=== PATIENT | male | born 1965 | race Caucasian/White ===

== ENCOUNTER 2020-11-26 05:05 | Emergency (ER) | payer OTHER ==
[2020-11-26 05:42] LABS: Hematocrit 46.4 % (42-50); Hemoglobin 16.1 gm/dl (12.5-18.0); Mean Cell Volume 93.9 fl (78-100); Mean Corpuscular Hemoglobin 32.6 pg (26-32); Mean Corpuscular Hgb Concent. 34.7 g/dl (32-36); Mean Platelet Volume 9.6 fl (7.5-11.0); Platelet Count 308 K/mm3 (150-450); Red Blood Count 4.94 M/mm3 (4.1-5.6); Red Cell Distribution Width 12.6 % (11.5-14.0); White Blood Count 6.6 K/mm3 (4.0-10.5)
--- NOTE | 2020-11-26 05:48 | ERPHSYRPT ---
<LELE CAMARENA - Last Filed: 11/26/20 05:42> - History of Present Illness Historian: patient Exam Limitations: other (Poor historian) Patient Subjective Stated Complaint: pain in my left side of ribs espeically when moving Triage Nursing Assessment: pt c/o pain in his left side between ribs and is much worse on movement. Pt started having this pain last Wednesday at work at [employer] and was sent here for xray and bloodwork. Pt states, "the pain started up again Wednesday and has just gotten worse". Pt doesn't have much pain at rest but is in significant pain with any movement. Lungs clear, pt denies any chest pain. Pt was positive for covid Oct 22, 2020. Pt has dry, non-prod cough, fatigue, headache. Pt states, "I fell Wednesday in my barn over an extension cord on that left side". Physician History: 55 yo wm w L lateral thoracic pain x 2 days. Pt states that he fell in his barn 2 days ago after tripping over a cord. Pt told my nurses that he has had the pain x 1 wk. Pt had CV19 diagnosed on 10/22, but that cough/symptoms have resolved. Pain is 3/10 now and has been up to 9/10. It is sharp and worse when rolling over in bed. Pt has a residual cough from CV19 but denies fever/dyspnea at this time. Timing/Duration: other (2 days/1wk) Quality: sharpness Location: other (L lateral thorax) Chest Pain Radiation: no radiation Severity of Pain-Current: mild Modifying Factors: Improves With: coughing, other (Turning in bed) Associated Symptoms: cough, hurts to breathe, No nausea, No vomiting, No palpitations, No heartburn, No abdominal pain, No shortness of breath, No diaphoresis, No chills, No fever, No fatigue, No weakness, No swelling/lump in chest, No syncope, No rash, No headache, No dizziness, No edema, No back pain Prior Chest Pain/Cardiac Workup: no prior chest pain Nitro Today/Relief: no nitro taken today Aspirin Treatment Today: no aspirin today Allergies/Adverse Reactions: BEE STINGS Allergy (Severe, Uncoded 11/07/11 15:49) Swelling Home Medications: Azithromycin 250 mg [Zithromax 250 MG TABLET] 1 tab PO DAILY 11/26/20 [History] Ergocalciferol (Vitamin D2) [Vitamin D2] 50,000 units PO WEEKLY 11/26/20 [History] Glipizide [Glipizide ER] 5 mg PO DAILY 11/26/20 [History] Metoprolol Tartrate 25 mg [Lopressor 25MG Tab] 25 mg PO DAILY 11/26/20 [History] Tamsulosin HCl 0.4 mg [Flomax 0.4 MG] 1 tab PO DAILY 11/26/20 [History] Hx Tetanus, Diphtheria Vaccination/Date Given: No Hx Influenza Vaccination/Date Given: No Hx Pneumococcal Vaccination/Date Given: No Immunizations Up to Date: No Travel Risk - International Travel Have you traveled outside of the country in past 3 weeks: No - Coronavirus Screening Are you exhibiting any of the following symptoms?: Yes Symptoms: Cough: New Onset, Shortness of Breath, Headaches/Body Aches/Fatigue Close contact with a COVID-19 positive Pt in past 14-21 Days: No - Vaccine Status Have you recieved a Covid-19 vaccination: No - Review of Systems Constitutional: No Symptoms Eyes: No Symptoms Ears, Nose, & Throat: No Symptoms Respiratory: No Symptoms, Cough Cardiac: No Symptoms, Chest Pain Abdominal/Gastrointestinal: No Symptoms Genitourinary Symptoms: No Symptoms Musculoskeletal: No Symptoms Skin: No Symptoms Neurological: No Symptoms Psychological: No Symptoms Endocrine: No Symptoms Hematologic/Lymphatic: No Symptoms Immunological/Allergic: No Symptoms - Past Medical History Pertinent Past Medical History: Yes Neurological History: No Pertinent History ENT History: No Pertinent History Cardiac History: High Cholesterol, Hypertension Respiratory History: No Pertinent History Endocrine Medical History: Diabetes Type II Musculoskeletal History: Fractures GI Medical History: No Pertinent History History: No Pertinent History Psycho-Social History: No Pertinent History Male Reproductive Disorders: No Pertinent History Other Medical History: HEMACROMITOSIS - Past Surgical History Past Surgical History: Yes Neuro Surgical History: No Pertinent History Cardiac: No Pertinent History Respiratory: No Pertinent History Gastrointestinal: No Pertinent History Genitourinary: No Pertinent History Musculoskeletal: Joint Replacement, Orthopedic Surgery Male Surgical History: No Pertinent History - Social History Smoking Status: Former smoker Exposure to second hand smoke: No Drug Use: none Patient Lives Alone: No Significant Family History: no pertinent family hx - Nursing Vital Signs Nursing Vital Signs: Hypertensive - Physical Exam General Appearance: no apparent distress Eye Exam: PERRL/EOMI, eyes nml inspection Ears, Nose, Throat Exam: normal ENT inspection, TMs normal, pharynx normal, moist mucous membranes Neck Exam: normal inspection, non-tender, supple, full range of motion Respiratory Exam: normal breath sounds, chest tenderness (L lateral thorax), lungs clear, airway intact, No respiratory distress Cardiovascular Exam: regular rate/rhythm, normal heart sounds, normal peripheral pulses, No murmur Gastrointestinal/Abdomen Exam: soft, normal bowel sounds, No tenderness Back Exam: normal inspection, normal range of motion, No CVA tenderness, No vertebral tenderness Extremity Exam: normal inspection, normal range of motion Neurologic Exam: alert, oriented x 3, cooperative, employment services director II-XII nml as tested, normal mood/affect, nml cerebellar function, nml station & gait Skin Exam: normal color, warm, dry Lymphatic Exam: No adenopathy SpO2 Interpretation: normal SpO2: 98 O2 Delivery: Room Air - Course EKG Interpreted by Me: RATE (NSR R94/Prolonged QTc/No acute ST changes/IVCD) - Departure Clinical Impression: Bilateral pneumonia, Chest wall pain Condition: Stable Referrals: STACY FLOWER, INVENTORY PLANNER [Primary Care Provider] - Additional Instructions: Discharge/Care Plan SIRI SAMPSON was seen on 11/26/20 in the Emergency Room. The patient was counseled regarding Diagnosis,Lab results, Imaging studies, need for follow up and when to return to the Emergency Room. Prescriptions given: Discharge Note I have spoken with the patient and/or caregivers. I have explained the patient's condition, diagnosis and treatment plan based on the information available to me at this time. I have answered the patient's and/or caregiver's questions and a ddressed any concerns. The patient and/or caregivers have as good understanding of the patient's diagnosis, condition and treatment plan as can be expected at this point. The vital signs have been stable. The patient's condition is stable and appropriate for discharge from the emergency department. The patient will pursue further outpatient evaluation with the primary care physician or other designated or consulting physician as outlined in the discharge instructions. The patient and/or caregivers are agreeable to this plan of care and follow-up instructions have been explained in detail. The patient and/or caregivers have received these instruction. The patient/and or caregivers are aware that any significant change in condition or worsening of symptoms should prompt an immediate return to this or the closest emergency department or call 911. Forms: Work/School Release Form Prescriptions: Levofloxacin [Levaquin 500 MG Tablet] 500 mg PO DAILY 7 Days #7 tablet <HUBERT ARORA - Last Filed: 11/26/20 08:16> - Nursing Vital Signs Nursing Vital Signs: Initial Vital Signs Temperature 98.1 F 11/26/20 05:06 Pulse Rate 98 H 11/26/20 05:06 Respiratory Rate 20 11/26/20 05:06 Blood Pressure 151/106 11/26/20 05:06 O2 Sat by Pulse Oximetry 99 11/26/20 05:06 Pain Scale Pain Intensity 7 Ordered Tests: Active Orders 24 hr Category Date Time Status CHEST WITH CONTRAST [CT] Stat Exams 11/26/20 05:41 Taken CBC W DIFF Stat Lab 11/26/20 05:30 Completed CMP Stat Lab 11/26/20 05:30 Completed Manual Differential NC Stat Lab 11/26/20 05:30 Completed TROPONIN Q3H Lab 11/26/20 05:30 Completed TROPONIN Q3H Lab 11/26/20 08:30 Ordered TROPONIN Q3H Lab 11/26/20 11:30 Ordered TROPONIN Q3H Lab 11/26/20 14:30 Ordered TROPONIN Q3H Lab 11/26/20 17:30 Ordered TROPONIN Q3H Lab 11/26/20 20:30 Ordered TROPONIN Q3H Lab 11/26/20 23:30 Ordered Medication Summary Discontinued Medications Generic Name Dose Route Start Last Admin Trade Name Dacia PRN Reason Stop Dose Admin Ketorolac Tromethamine 30 mg 11/26/20 06:02 11/26/20 06:08 Toradol 30 Mg Injection IV 11/26/20 06:03 30 mg STAT ONE Administration Ketorolac Tromethamine Confirm 11/26/20 06:07 Toradol 30 Mg Injection Administered 11/26/20 06:08 Dose 30 mg .ROUTE .[employer]-MED ONE Lab/Rad Data: Laboratory Result Diagrams 11/26/20 05:30 11/26/20 05:30 Laboratory Results 11/26/20 11/26/20 11/26/20 Range/Units 05:30 05:30 05:30 WBC 6.6 (4.0-10.5) K/mm3 RBC 4.94 (4.1-5.6) M/mm3 Hgb 16.1 (12.5-18.0) gm/dl Hct 46.4 (42-50) % MCV 93.9 (78-100) fl MCH 32.6 H (26-32) pg MCHC 34.7 (32-36) g/dl RDW 12.6 (11.5-14.0) % Plt Count 308 (150-450) K/mm3 MPV 9.6 (7.5-11.0) fl Segmented Neutrophils 66 (36.-66.) % Lymphocytes (Manual) 25 (24-44) % Monocytes (Manual) 9 (0.0-12.0) % Platelet Estimate NORMAL (NORMAL) RBC Morphology ABNORMAL Anisocytosis 1+ Microcytosis 1+ Sodium 135 L (137-145) mmol/L Potassium 4.3 (3.5-5.1) mmol/L Chloride 102 (98-107) mmol/L Carbon Dioxide 23 (22-30) mmol/L Anion Gap 14.1 (5-15) MEQ/L BUN 11 (9-20) mg/dL Creatinine 0.68 (0.66-1.25) mg/dL Estimated GFR > 60.0 ML/MIN Glucose 262 H (74-106) mg/dL Calcium 9.6 (8.4-10.2) mg/dL Total Bilirubin 1.60 H (0.2-1.3) mg/dL AST 21 (17-59) U/L ALT 28 (0-50) U/L Alkaline Phosphatase 129 H (38-126) U/L Troponin I < 0.012 (0.000-0.034) ng/mL Serum Total Protein 7.3 (6.3-8.2) g/dL Albumin 4.3 (3.5-5.0) g/dL - Progress Progress: improved Air Movement: good Progress Note: Patient endorsed to Dr. Arora at approximately [address] Arora advised to follow- up on CT chest. CT chest reveals no pulmonary embolus. There are alveolar opacities bilaterally. The suggest pneumonia. Old granulomatous disease. Patient states he had a chest x-ray approximately a week ago. Patient was started on a Z-Shivam. Patient is on his last day of azithromycin. I do not know if this pneumonia is resolving or if it is progressing. At this point patient feels well. Patient ambulated in our ED. Oxygen saturations remained in the high 90s. Patient felt well. He was not fatigued or short of breath. We will discharge patient home and provide him with a work note. We will also provide patient with Levaquin antibiotics for 1 week. Patient will call his family doctor today and schedule an appointment for the end of the week. Patient understands that if symptoms worsen if he develops fevers progressive shortness of breath or anything concerning he is to return to our ED. Patient voices no other complaints concerns at this time. Will discharge home with an antibiotic prescription. Portions of this note were created with voice recognition technology. There may be grammatical, spelling, punctuation or sound alike errors 11/26/20 08:10 11/26/20 08:13 Patient's lactic acid is within normal limits. We will order an outpatient Covid test prior to discharge. 11/26/20 08:15 Additionally patient notes that he has been coughing excessively prior to the onset of his left-sided chest pain. Troponin negative. PE negative. Patient's chest pain is likely chest wall pain/intercostal muscles strain. Pain is reproduced with palpation to his left chest wall as well as deep inspiration. Blood Culture(s) Obtained: No Antibiotics given: No Counseled pt/family regarding: lab results, diagnosis, need for follow-up, rad results - Departure Departure Disposition: Home Critical Care Time: No
[2020-11-26 05:53] LABS: ALBUMIN 4.3 g/dL (3.5-5.0); ALKALINE PHOSPHATASE 129 U/L (38-126); ANION GAP 14.1 MEQ/L (5-15); BLOOD UREA NITROGEN 11 mg/dL (9-20); CHLORIDE 102 mmol/L (98-107); Calcium 9.6 mg/dL (8.4-10.2); Carbon Dioxide 23 mmol/L (22-30); Creatinine 1 0.68 mg/dL (0.66-1.25); EST GLOMERULAR FILTRATION RATE > 60.0 ML/MIN; Glucose 262 mg/dL (74-106); Potassium 4.3 mmol/L (3.5-5.1); SGOT/AST 21 U/L (17-59); SGPT/ALT 28 U/L (0-50); SODIUM 135 mmol/L (137-145); Total Protein 7.3 g/dL (6.3-8.2)
[2020-11-26] MEDS ORDERED: TORAdol 30 mg Injection IV ONE (06:02)
[2020-11-26] MEDS ORDERED: TORAdol 30 mg Injection ONE (06:07)
[2020-11-26 06:44] LABS: ANISOCYTOSIS 1+; Lymphocytes 25 % (24-44); Microcytosis 1+; Monocyte 9 % (0.0-12.0); Neutrophils 66 % (36.-66.); Platelet Estimate NORMAL (NORMAL); Total Cells Counted 100
[2020-11-26 08:04] VITALS: BP 139/100; PULSE 92; O2SAT 98
--- NOTE | 2020-11-26 08:47 | XRAY ---
Indication: Chest pain. History Covid 19 October 22, 2020. Multiple contiguous axial images obtained through the chest using 80 cc Isovue 370 contrast and PE protocol. Comparison: None There is good opacification of the pulmonary arteries to include the lobar and segmental branches. No pulmonary embolus. Heart is not enlarged. Aorta is normal in course and caliber. Small mediastinal and bilateral hilar calcified nodes. No pathologic lymphadenopathy. Lungs demonstrates moderate diffuse bilateral patchy airspace disease with minimal patchy areas of consolidation in both lower lobes. Incidental tiny bilateral calcified/noncalcified granulomas. Bony thorax intact with incidental remote T4/T11 superior endplate fractures versus Schmorl nodes. Limited upper abdomen demonstrates 15 cm splenomegaly with splenic calcified granulomas. Impression: 1. Negative pulmonary embolus. 2. Diffuse bilateral patchy consolidating/nonconsolidating airspace disease. Commonly reported imaging features of Covid 19 pneumonia are present. Other processes such as influenza pneumonia and organizing pneumonia, as can be seen with drug toxicity and connective-tissue disease, can cause a similar imaging pattern. 3. Incidental splenomegaly, chronic bony findings, and old granulomatous disease. Comment: Preliminary interpretation made by C. No critical discrepancy.
== END 2020-11-26 09:09 | disposition home or self-care (01) ==
LOC: ED 05:05
DX: J18.9 Pneumonia, unspecified organism (principal); R07.89 Other chest pain; R05.9 Cough, unspecified; Z79.899 Other long term (current) drug therapy
CPT/HCPCS: 36000; 36415; 71260; 80053; 84484; 85025; 93005; 96374; 99284; U0003; J1885

== ENCOUNTER 2021-08-20 13:34 | Emergency (ER) | payer OTHER ==
[2021-08-20 13:52] LABS: Appearance CLEAR (CLEAR); Bilirubin NEGATIVE (NEGATIVE); Glucose 1000 mg/dL (NEGATIVE); Ketones NEGATIVE (NEGATIVE); Nitrite NEGATIVE (NEGATIVE); Ph 5.5 (5-6); Protein,Urine Dip NEGATIVE (Negative); RBC NEGATIVE Ery/ul (0-5); Specific Gravity <=1.005 (1.005-1.025); Urine Cultured Indicated? NO; Urobilinogen 0.2 mg/dL (0-1)
[2021-08-20 13:53] LABS: Dipstick done @ ? MAIN LAB
--- NOTE | 2021-08-20 14:35 | XRAY ---
Indication: Right flank pain radiating right leg. Multiple contiguous axial images obtained through the abdomen and pelvis without contrast using renal stone protocol. Comparison: August 23, 2018. Lung bases again demonstrate small bibasilar calcified granulomas. Heart not enlarged. Again no renal calculus or evidence for obstructive uropathy in either system. Stomach moderately distended with food/fluid. Noncontrasted stomach and bowel loops are nonobstructed again with normal appendix. No free fluid/air. Again 15 cm splenomegaly with calcified granulomas. Liver remains large measuring 22 cm. Remaining liver, gallbladder, spleen, pancreas, adrenal glands, kidneys, ureters, and bladder are unremarkable for noncontrast exam. Stable chunky prostate calcifications. Again mild scattered aortic calcifications without AAA. Osseous structures intact with stable old right lower rib fractures, minimal degenerative changes throughout the thoracolumbar spine, mild right hip DJD, and superior T11 Schmorl node. Impression: 1. Continued negative for renal calculus or evidence for obstructive uropathy. 2. Chronic findings including hepatosplenomegaly, benign chunky prostate calcifications, mild aortic calcifications, old right rib fractures, multilevel degenerative spondylosis, right hip DJD, and T11 Schmorl node.
--- NOTE | 2021-08-20 14:39 | XRAY ---
Indication: Right flank pain radiating right leg. Multiple contiguous axial images obtained through the lumbar spine appears sagittal and coronal reformatted images obtained. Comparison: August 23, 2018. Axial images negative for acute fracture, suspicious bony lesions, or spinal canal stenosis. Facets are symmetric. Stable mild right SI joint degenerative changes. Sagittal and coronal reformatted images again demonstrates normal lumbar alignment with portable body heights/disc spaces maintained. No acute compression fracture or subluxation. Stable mild aortic calcifications without aneurysm. Impression: Stable mild right SI joint degenerative changes and mild aortic calcifications. Remaining CT lumbar spine is negative.
[2021-08-20 14:57] VITALS: O2SAT 98
--- NOTE | 2021-08-20 15:21 | ERPHSYRPT ---
- History of Present Illness Time Seen by Provider: 08/20/21 15:00 Source: patient Exam Limitations: no limitations Patient Subjective Stated Complaint: co pain to to right hip and right buttock since yesterday worse last 3 hours. no injury Triage Nursing Assessment: pt alert, resp easy, skin w/d/p,. has face mask in place , pt tender to palpate, no edema noted Physician History: Patient is a 56-year-old male presents to our ED with pain to his right hip and right buttock area. Patient ambulating with a limp. Patient states the pain feels as if it is going into his right flank. No chest pain or shortness of breath. No nausea vomiting or diaphoresis. Pain started yesterday and has been continuous intensity. Pain worse with ambulation pain improved with rest. No trauma. No fever. No rash. No nausea vomiting or diaphoresis. Symptoms are mild to moderate in intensity. Patient declined pain medication. Patient advised that he is a diabetic. Patient states he overdid it this weekend and his blood sugars may be elevated. Patient voices no other complaints or concerns at this time. Timing/Duration: today Associated Symptoms: denies symptoms Allergies/Adverse Reactions: BEE STINGS Allergy (Severe, Uncoded 08/20/21 13:44) Swelling Home Medications: Ergocalciferol (Vitamin D2) [Vitamin D2] 50,000 units PO WEEKLY 11/26/20 [History] Glipizide [Glipizide ER] 5 mg PO DAILY 11/26/20 [History] Tamsulosin HCl 0.4 mg [Flomax 0.4 MG] 1 tab PO DAILY 11/26/20 [History] Fenofibrate 150 mg PO DAILY 08/20/21 [History] Lisinopril 20 mg [Zestril 20 MG] 20 mg PO DAILY 08/20/21 [History] Hx Tetanus, Diphtheria Vaccination/Date Given: No Hx Influenza Vaccination/Date Given: No Hx Pneumococcal Vaccination/Date Given: No Immunizations Up to Date: Yes Travel Risk - International Travel Have you traveled outside of the country in past 3 weeks: No - Coronavirus Screening Are you exhibiting any of the following symptoms?: No - Vaccine Status Have you recieved a Covid-19 vaccination: No - Review of Systems Constitutional: No Symptoms, No Fever, No Chills Eyes: No Symptoms Ears, Nose, & Throat: No Symptoms Respiratory: No Symptoms, No Cough, No Dyspnea Cardiac: No Symptoms, No Chest Pain, No Edema, No Syncope Abdominal/Gastrointestinal: No Symptoms, No Abdominal Pain, No Nausea, No Vomiting, No Diarrhea Genitourinary Symptoms: No Symptoms, No Dysuria Musculoskeletal: No Symptoms, No Back Pain, No Neck Pain Skin: No Symptoms, No Rash Neurological: No Symptoms, No Dizziness, No Focal Weakness, No Sensory Changes Psychological: No Symptoms Endocrine: No Symptoms Hematologic/Lymphatic: No Symptoms Immunological/Allergic: No Symptoms All Other Systems: Reviewed and Negative - Past Medical History Pertinent Past Medical History: Yes Neurological History: No Pertinent History ENT History: No Pertinent History Cardiac History: High Cholesterol, Hypertension Respiratory History: No Pertinent History Endocrine Medical History: Diabetes Type II Musculoskeletal History: Fractures GI Medical History: No Pertinent History History: No Pertinent History Psycho-Social History: No Pertinent History Male Reproductive Disorders: No Pertinent History Other Medical History: HEMACROMITOSIS - Past Surgical History Past Surgical History: Yes Neuro Surgical History: No Pertinent History Cardiac: No Pertinent History Respiratory: No Pertinent History Gastrointestinal: No Pertinent History Genitourinary: No Pertinent History Musculoskeletal: Joint Replacement, Orthopedic Surgery Male Surgical History: No Pertinent History Other Surgical History: knee, - Social History Smoking Status: Former smoker Exposure to second hand smoke: No Drug Use: none Patient Lives Alone: No Significant Family History: no pertinent family hx - Nursing Vital Signs Nursing Vital Signs: Initial Vital Signs Pulse Rate 104 H 08/20/21 14:56 Respiratory Rate 18 08/20/21 14:56 O2 Sat by Pulse Oximetry 98 08/20/21 14:56 Pain Scale Pain Intensity 3 - Physical Exam General Appearance: no apparent distress, alert Eye Exam: PERRL/EOMI, eyes nml inspection Ears, Nose, Throat Exam: normal ENT inspection, TMs normal, pharynx normal, moist mucous membranes Neck Exam: normal inspection, non-tender, supple, full range of motion Respiratory Exam: normal breath sounds, lungs clear, airway intact, No respiratory distress Cardiovascular Exam: regular rate/rhythm, normal heart sounds, normal peripheral pulses Gastrointestinal/Abdomen Exam: soft, normal bowel sounds, No tenderness, No mass Back Exam: normal inspection, normal range of motion, No CVA tenderness, No vertebral tenderness Extremity Exam: normal inspection, normal range of motion, pelvis stable, other (Pain to right hip with motion. Pain also reproduced with weightbearing. Pain tends to radiate into the right groin area. Extremity neurovascular intact distally. Compartments are soft. Cap refill less than 2 seconds. PT DP pulse palpable.) Neurologic Exam: alert, oriented x 3, cooperative, normal mood/affect, nml cerebellar function, nml station & gait, sensation nml, No motor deficits Skin Exam: normal color, warm, dry, No rash Lymphatic Exam: No adenopathy SpO2 Interpretation: normal SpO2: 98 O2 Delivery: Room Air - Course Nursing assessment & vital signs reviewed: Yes - CT Exams Lumbar Spine CT Interpretation: Tele-radiologist Report (Aortic calcifications right SI joint arthritis. Chronic findings.) Abdomen/Pelvis CT Interpretation: Tele-radiologist Report (Calcified granuloma, splenomegaly. Hepatomegaly, prostate calcifications, right hip arthritis.) Ordered Tests: Active Orders 24 hr Category Date Time Status ABDOMEN AND PELVIS W/0 CONTRAS [CT] Stat Exams 08/20/21 13:41 Completed LUMBAR SPINE W/O [CT] Stat Exams 08/20/21 13:42 Completed POCT GLUCOSE Stat Lab 08/20/21 15:21 Completed UA W/RFX CULTURE Stat Lab 08/20/21 13:43 Completed Lab/Rad Data: Laboratory Results 08/20/21 08/20/21 Range/Units 15:21 13:43 POC Glucometer 383 H (74 to 106) mg/dL Urinalys Dipstick Clnc MAIN LAB Urine Color YELLOW (YELLOW) Urine Appearance CLEAR (CLEAR) Urine pH 5.5 (5-6) Ur Specific [place] <=1.005 (1.005-1.025) POC Urine Protein Conf NEGATIVE (Negative) Urine Ketones NEGATIVE (NEGATIVE) Urine Nitrite NEGATIVE (NEGATIVE) Urine Bilirubin NEGATIVE (NEGATIVE) Urine Urobilinogen 0.2 (0-1) mg/dL Urine Leukocytes NEGATIVE (NEGATIVE) Urine WBC (Auto) NONE (0-5) /HPF Urine RBC NEGATIVE (0-5) Uche/ul Ur Culture Indicated? NO Urine Glucose 1000 (NEGATIVE) mg/dL - Progress Progress: improved Progress Note: Patient reassessed. He feels well. Patient declined pain medication. Work-up reveals right SI joint and right hip arthritis. This may be causing patient's symptoms as symptoms occurred upon weightbearing. Incidental hepatosplenomegaly with prostate calcifications. There are some aortic calcifications observed as well. We advised patient to stay for laboratory work-up that we can further assess his hyperglycemia however patient declined. Patient states he does not want to be worked up for his hyperglycemia. Patient expected to be high as he had large amounts of ice cream and alcohol over the weekend/August weekend. Patient requested a work note. Work note provided Patient is of sound mind. Patient is appropriate to make informed and independent medical decisions. Patient understands that leaving AGAINST MEDICAL ADVICE can result in delayed diagnosis, increased risk of morbidity, mortality, short and long-term disability including . In spite of these risks, patient has decided to leave AGAINST MEDICAL ADVICE. Patient understands that he may return to our ED at any point if he or she reconsiders. Patient agrees to follow-up with his or her primary care doctor within 48 hours for reevaluation. Patient voices no other complaints or concerns at this time. We will release patient AGAINST MEDICAL ADVICE per their request. Portions of this note were created with voice recognition technology. There may be grammatical, spelling, punctuation or sound alike errors 08/20/21 15:35 As patient was being discharged she requested a prescription for Toradol. A written prescription for Toradol was provided. 08/20/21 15:46 Counseled pt/family regarding: lab results, diagnosis, need for follow-up, rad results - Departure Departure Disposition: Home Clinical Impression: Glucosuria, SI joint arthritis, Aortic calcification, Splenomegaly, Hepatomegaly, Prostate calcifications, Arthritis of right hip Condition: Stable Critical Care Time: No Referrals: STACY FLOWER, [facility] [Primary Care Provider] - Follow up/PCP as directed Additional Instructions: Your blood sugars are elevated during this emergency visit. We advise a work-up and treatment. Please follow-up with your primary care doctor within 48 hours to reassess your blood sugars. Please return to our ED if symptoms worsen or if your blood sugar does not improve back to its baseline. If you change your mind on care regarding her blood sugar please return to our ED. Discharge/Care Plan ADRIÁNSIRI RAMIREZ was seen on 08/20/21 in the Emergency Room. The patient was counseled regarding Diagnosis,Lab results, Imaging studies, need for follow up and when to return to the Emergency Room. Prescriptions given: Discharge Note I have spoken with the patient and/or caregivers. I have explained the patient's condition, diagnosis and treatment plan based on the information available to me at this time. I have answered the patient's and/or caregiver's questions and addressed any concerns. The patient and/or caregivers have as good understanding of the patient's diagnosis, condition and treatment plan as can be expected at this point. The vital signs have been stable. The patient's condition is stable and appropriate for discharge from the emergency department. The patient will pursue further outpatient evaluation with the primary care physician or other designated or consulting physician as outlined in the discharge instructions. The patient and/or caregivers are agreeable to this plan of care and follow-up instructions have been explained in detail. The patient and/or caregivers have received these instruction. The patient/and or caregivers are aware that any significant change in condition or worsening of symptoms should prompt an immediate return to this or the closest emergency department or call 911. Forms: Work/School Release Form
[2021-08-20 15:47] VITALS: BP 159/88; PULSE 108
== END 2021-08-20 15:47 | disposition home or self-care (01) ==
LOC: ED 13:34
DX: M16.11 Unilateral primary osteoarthritis, right hip (principal); M19.09 Primary osteoarthritis, other specified site; R16.2 Hepatomegaly with splenomegaly, not elsewhere classified; I70.0 Atherosclerosis of aorta; N42.0 Calculus of prostate; R81 Glycosuria; M25.551 Pain in right hip; R10.9 Unspecified abdominal pain; E78.5 Hyperlipidemia, unspecified; I10 Essential (primary) hypertension; E11.9 Type 2 diabetes mellitus without complications; E83.119 Hemochromatosis, unspecified; Z79.84 Long term (current) use of oral hypoglycemic drugs; Z79.899 Other long term (current) drug therapy; Z28.310 Unvaccinated for COVID-19
CPT/HCPCS: 72131; 74176; 81015; 82947; 99283

== ENCOUNTER 2021-09-25 14:39 | Emergency (ER) | payer OTHER ==
[2021-09-25] MEDS ORDERED: Sodium Chloride 0.9% 1000 ML 1,000 ML IV STA ×2 (15:19→17:48)
[2021-09-25] MEDS ORDERED: Sodium Chloride 0.9% 1000 ML 1,000 ML ONE ×2 (15:33→17:56)
[2021-09-25 15:36] LABS: Absolute Neutrophil Ct (ANC) 3.47 x10^3/uL (1.4-6.9); Basophil (Absolute #) 0.07 x10^3/uL (0-0.4); Eosinophil % 0.6 % (0.00-5.0); Eosinophil (Absolute #) 0.03 x10^3/uL (0-0.5); Hemoglobin 14.7 g/dL (12.5-18.0); Lymphocyte (Absolute #) 1.41 x10^3/uL (1.0-4.6); Lymphocytes % 26.2 % (24.0-44.0); Mean Cell Volume 91.7 fL (78-100); Mean Corpuscular Hemoglobin 33.7 pg (26-32); Mean Corpuscular Hgb Concent. 36.8 g/dL (32-36); Mean Platelet Volume 9.1 fL (7.5-11.0); Monocyte (Absolute #) 0.38 x10^3/uL (0.0-1.3); Monocytes % 7.1 % (0.0-12.0); Neutrophil % 64.4 % (36.0-66.0); Platelet Count 183 x10^3/uL (150-450); Red Blood Count 4.36 x10^6/uL (4.1-5.6); Red Cell Distribution Width 11.4 % (11.5-14.0); White Blood Count 5.4 x10^3/uL (4.0-10.5)
[2021-09-25 15:49] LABS: ALBUMIN 3.7 g/dL (3.5-5.0); ALKALINE PHOSPHATASE 117 U/L (38-126); ANION GAP 13.4 MEQ/L (5-15); BLOOD UREA NITROGEN 17 mg/dL (9-20); CHLORIDE 99 mmol/L (98-107); Calcium 9.6 mg/dL (8.4-10.2); Carbon Dioxide 23 mmol/L (22-30); Creatinine 1 1.17 mg/dL (0.66-1.25); EST GLOMERULAR FILTRATION RATE > 60.0 ML/MIN; Glucose 403 mg/dL (74-106); SGOT/AST 22 U/L (17-59); SGPT/ALT 26 U/L (0-50); SODIUM 132 mmol/L (137-145); Total Protein 6.6 g/dL (6.3-8.2)
[2021-09-25 16:17] VITALS: O2SAT 98
--- NOTE | 2021-09-25 17:14 | ERPHSYRPT ---
- History of Present Illness Time Seen by Provider: 09/25/21 15:40 Source: patient Exam Limitations: no limitations Patient Subjective Stated Complaint: Pt states "My blood sugar has been up all day and I have a headache and am seeing spots. I called my dr and they said to come in and get checked out. I feel much better now." Triage Nursing Assessment: PT presented alert and oriented X 3, skin wpd. pt ambulates with an upright steady gait. PT in no apparent respiratory distress. pt resting comfortably on the bed. Physician History: Patient is a 56-year-old male presents to emergency department as a referral from his primary care doctor for evaluation of hypoglycemia. Patient states his sugar has been higher than normal all day. Patient has a mild frontal headache. Patient states he has seen spots in his visual field. No trauma. No fever. No neck pain. No photophobia. Patient has no meningeal signs. No chest pain or shortness of breath. No nausea vomiting or diaphoresis. No fever no rash. Patient denies a history of the same. He voices no other complaints or concerns at this time. Portions of this note were created with voice recognition technology. There may be grammatical, spelling, punctuation or sound alike errors Timing/Duration: today Severity: moderate Modifying Factors: Improves With: nothing Associated Symptoms: denies symptoms Allergies/Adverse Reactions: BEE STINGS Allergy (Severe, Uncoded 08/20/21 13:44) Swelling Home Medications: Ergocalciferol (Vitamin D2) [Vitamin D2] 50,000 units PO WEEKLY 11/26/20 [History] Glipizide [Glipizide ER] 5 mg PO DAILY 11/26/20 [History] Tamsulosin HCl 0.4 mg [Flomax 0.4 MG] 1 tab PO DAILY 11/26/20 [History] Fenofibrate 150 mg PO DAILY 08/20/21 [History] Lisinopril 20 mg [Zestril 20 MG] 20 mg PO DAILY 08/20/21 [History] Hx Tetanus, Diphtheria Vaccination/Date Given: No Hx Influenza Vaccination/Date Given: No Hx Pneumococcal Vaccination/Date Given: No Immunizations Up to Date: Yes Travel Risk - International Travel Have you traveled outside of the country in past 3 weeks: No - Coronavirus Screening Are you exhibiting any of the following symptoms?: No Symptoms: Cough: New Onset Close contact with a COVID-19 positive Pt in past 14-21 Days: No - Vaccine Status Have you recieved a Covid-19 vaccination: No - Review of Systems Constitutional: No Symptoms, No Fever, No Chills Eyes: No Symptoms Ears, Nose, & Throat: No Symptoms Respiratory: No Symptoms, No Cough, No Dyspnea Cardiac: No Symptoms, No Chest Pain, No Edema, No Syncope Abdominal/Gastrointestinal: No Symptoms, No Abdominal Pain, No Nausea, No Vomiting, No Diarrhea Genitourinary Symptoms: No Symptoms, No Dysuria Musculoskeletal: No Symptoms, No Back Pain, No Neck Pain Skin: No Symptoms, No Rash Neurological: No Symptoms, No Dizziness, No Focal Weakness, No Sensory Changes Psychological: No Symptoms Endocrine: No Symptoms Hematologic/Lymphatic: No Symptoms Immunological/Allergic: No Symptoms All Other Systems: Reviewed and Negative - Past Medical History Pertinent Past Medical History: Yes Neurological History: No Pertinent History ENT History: No Pertinent History Cardiac History: High Cholesterol, Hypertension Respiratory History: No Pertinent History Endocrine Medical History: Diabetes Type II Musculoskeletal History: Fractures GI Medical History: No Pertinent History History: No Pertinent History Psycho-Social History: No Pertinent History Male Reproductive Disorders: No Pertinent History Other Medical History: HEMACROMITOSIS - Past Surgical History Past Surgical History: Yes Neuro Surgical History: No Pertinent History Cardiac: No Pertinent History Respiratory: No Pertinent History Gastrointestinal: No Pertinent History Genitourinary: No Pertinent History Musculoskeletal: Joint Replacement, Orthopedic Surgery Male Surgical History: No Pertinent History Other Surgical History: knee, - Social History Smoking Status: Former smoker Exposure to second hand smoke: No Drug Use: none Patient Lives Alone: No Significant Family History: no pertinent family hx - Nursing Vital Signs Nursing Vital Signs: Initial Vital Signs Temperature 98.0 F 09/25/21 15:08 Pulse Rate 98 H 09/25/21 15:08 Respiratory Rate 20 09/25/21 15:08 Blood Pressure 140/93 09/25/21 15:08 O2 Sat by Pulse Oximetry 96 09/25/21 15:08 Pain Scale Pain Intensity 0 - Physical Exam General Appearance: no apparent distress, alert Eye Exam: PERRL/EOMI, eyes nml inspection Ears, Nose, Throat Exam: normal ENT inspection, TMs normal, pharynx normal, moist mucous membranes Neck Exam: normal inspection, non-tender, supple, full range of motion Respiratory Exam: normal breath sounds, lungs clear, airway intact, No respiratory distress Cardiovascular Exam: regular rate/rhythm, normal heart sounds, normal peripheral pulses Gastrointestinal/Abdomen Exam: soft, normal bowel sounds, No tenderness, No mass Back Exam: normal inspection, normal range of motion, No CVA tenderness, No vertebral tenderness Extremity Exam: normal inspection, normal range of motion, pelvis stable Neurologic Exam: alert, oriented x 3, cooperative, normal mood/affect, nml cerebellar function, nml station & gait, sensation nml, No motor deficits Skin Exam: normal color, warm, dry, No rash Lymphatic Exam: No adenopathy SpO2 Interpretation: normal SpO2: 98 O2 Delivery: Room Air - Course Nursing assessment & vital signs reviewed: Yes EKG Interpreted by Me: RATE (101), Sinus Tach, NORMAL AXIS, NORMAL INTERVALS Ordered Tests: Active Orders 24 hr Category Date Time Status Spiral Tube Winder STAT Care 09/25/21 15:20 Active EKG-ER Only STAT Care 09/25/21 15:19 Active IV Insertion STAT Care 09/25/21 15:19 Active Pulse Oximetry (ED) STAT Care 09/25/21 15:19 Active CBC W DIFF Stat Lab 09/25/21 15:19 Completed CMP Stat Lab 09/25/21 15:19 Completed POCT GLUCOSE Stat Lab 09/25/21 15:07 Completed POCT GLUCOSE Stat Lab 09/25/21 17:07 Completed TROPONIN Q4H Lab 09/25/21 15:30 Completed TROPONIN Q4H Lab 09/25/21 18:15 Completed TROPONIN Q4H Lab 09/25/21 23:30 Ordered UA W/RFX CULTURE Stat Lab 09/25/21 18:00 Completed Medication Summary Discontinued Medications Generic Name Dose Route Start Last Admin Trade Name Freq PRN Reason Stop Dose Admin Sodium Chloride 1,000 mls @ 999 mls/hr 09/25/21 15:19 09/25/21 17:00 Sodium Chloride 0.9% 1000 Ml IV 09/25/21 16:19 Infused .Q1H1M STA Infusion Sodium Chloride Confirm 09/25/21 15:33 Sodium Chloride 0.9% 1000 Ml Administered 09/25/21 15:34 Dose 1,000 mls @ ud .ROUTE .STK-MED ONE Sodium Chloride 1,000 mls @ 999 mls/hr 09/25/21 17:48 09/25/21 18:48 Sodium Chloride 0.9% 1000 Ml IV 09/25/21 18:48 Infused .Q1H1M STA Infusion Sodium Chloride Confirm 09/25/21 17:56 Sodium Chloride 0.9% 1000 Ml Administered 09/25/21 17:57 Dose 1,000 mls @ ud .ROUTE .STK-MED ONE Lab/Rad Data: Laboratory Result Diagrams 09/25/21 15:19 09/25/21 15:19 Laboratory Results 09/25/21 09/25/21 09/25/21 Range/Units 18:15 18:00 17:07 WBC (4.0-10.5) x10^3/uL RBC (4.1-5.6) x10^6/uL Hgb (12.5-18.0) g/dL Hct (42-50) % MCV (78-100) fL MCH (26-32) pg MCHC (32-36) g/dL RDW (11.5-14.0) % Plt Count (150-450) x10^3/uL MPV (7.5-11.0) fL Gran % (36.0-66.0) % Immature Gran % (Auto) (0.00-0.4) % Nucleat RBC Rel Count (0.00-0.1) % Eos # (Auto) (0-0.5) x10^3/uL Immature Gran # (Auto) (0.00-0.03) x10^3u/L Absolute Lymphs (auto) (1.0-4.6) x10^3/uL Absolute Monos (auto) (0.0-1.3) x10^3/uL Absolute Nucleated RBC (0.00-0.01) x10^3u/L Lymphocytes % (24.0-44.0) % Monocytes % (0.0-12.0) % Eosinophils % (0.00-5.0) % Basophils % (0.0-0.4) % Absolute Granulocytes (1.4-6.9) x10^3/uL Basophils # (0-0.4) x10^3/uL Sodium (137-145) mmol/L Potassium (3.5-5.1) mmol/L Chloride (98-107) mmol/L Carbon Dioxide (22-30) mmol/L Anion Gap (5-15) MEQ/L BUN (9-20) mg/dL Creatinine (0.66-1.25) mg/dL Estimated GFR ML/MIN Glucose (74-106) mg/dL POC Glucometer 304 H (74 to 106) mg/dL Calcium (8.4-10.2) mg/dL Total Bilirubin (0.2-1.3) mg/dL AST (17-59) U/L ALT (0-50) U/L Alkaline Phosphatase (38-126) U/L Troponin I < 0.012 (0.000-0.034) ng/mL Serum Total Protein (6.3-8.2) g/dL Albumin (3.5-5.0) g/dL Urinalys Dipstick Clnc MAIN LAB Urine Color YELLOW (YELLOW) Urine Appearance CLEAR (CLEAR) Urine pH 5.5 (5-6) Ur Specific [facility] 1.010 (1.005-1.025) POC Urine Protein Conf NEGATIVE (Negative) Urine Ketones NEGATIVE (NEGATIVE) Urine Nitrite NEGATIVE (NEGATIVE) Urine Bilirubin NEGATIVE (NEGATIVE) Urine Urobilinogen 0.2 (0-1) mg/dL Urine Leukocytes NEGATIVE (NEGATIVE) Urine WBC (Auto) Not Reportable Urine RBC (Auto) Not Reportable U Epithel Cells (Auto) Not Reportable Urine Bacteria (Auto) Not Reportable Urine RBC NEGATIVE (0-5) Uche/ul Ur Culture Indicated? NO Urine Glucose 500 (NEGATIVE) mg/dL 09/25/21 09/25/21 09/25/21 Range/Units 15:30 15:19 15:19 WBC 5.4 (4.0-10.5) x10^3/uL RBC 4.36 (4.1-5.6) x10^6/uL Hgb 14.7 (12.5-18.0) g/dL Hct 40.0 L (42-50) % MCV 91.7 (78-100) fL MCH 33.7 H (26-32) pg MCHC 36.8 H (32-36) g/dL RDW 11.4 L (11.5-14.0) % Plt Count 183 (150-450) x10^3/uL MPV 9.1 (7.5-11.0) fL Gran % 64.4 (36.0-66.0) % Immature Gran % (Auto) 0.4 (0.00-0.4) % Nucleat RBC Rel Count 0.0 (0.00-0.1) % Eos # (Auto) 0.03 (0-0.5) x10^3/uL Immature Gran # (Auto) 0.02 (0.00-0.03) x10^3u/L Absolute Lymphs (auto) 1.41 (1.0-4.6) x10^3/uL Absolute Monos (auto) 0.38 (0.0-1.3) x10^3/uL Absolute Nucleated RBC 0.00 (0.00-0.01) x10^3u/L Lymphocytes % 26.2 (24.0-44.0) % Monocytes % 7.1 (0.0-12.0) % Eosinophils % 0.6 (0.00-5.0) % Basophils % 1.3 (0.0-0.4) % Absolute Granulocytes 3.47 (1.4-6.9) x10^3/uL Basophils # 0.07 (0-0.4) x10^3/uL Sodium 132 L (137-145) mmol/L Potassium 4.0 (3.5-5.1) mmol/L Chloride 99 (98-107) mmol/L Carbon Dioxide 23 (22-30) mmol/L Anion Gap 13.4 (5-15) MEQ/L BUN 17 (9-20) mg/dL Creatinine 1.17 (0.66-1.25) mg/dL Estimated GFR > 60.0 ML/MIN Glucose 403 H (74-106) mg/dL POC Glucometer (74 to 106) mg/dL Calcium 9.6 (8.4-10.2) mg/dL Total Bilirubin 0.80 (0.2-1.3) mg/dL AST 22 (17-59) U/L ALT 26 (0-50) U/L Alkaline Phosphatase 117 (38-126) U/L Troponin I < 0.012 (0.000-0.034) ng/mL Serum Total Protein 6.6 (6.3-8.2) g/dL Albumin 3.7 (3.5-5.0) g/dL Urinalys Dipstick Clnc Urine Color (YELLOW) Urine Appearance (CLEAR) Urine pH (5-6) Ur Specific [facility] (1.005-1.025) POC Urine Protein Conf (Negative) Urine Ketones (NEGATIVE) Urine Nitrite (NEGATIVE) Urine Bilirubin (NEGATIVE) Urine Urobilinogen (0-1) mg/dL Urine Leukocytes (NEGATIVE) Urine WBC (Auto) Urine RBC (Auto) U Epithel Cells (Auto) Urine Bacteria (Auto) Urine RBC (0-5) Uche/ul Ur Culture Indicated? Urine Glucose (NEGATIVE) mg/dL 09/25/21 Range/Units 15:07 WBC (4.0-10.5) x10^3/uL RBC (4.1-5.6) x10^6/uL Hgb (12.5-18.0) g/dL Hct (42-50) % MCV (78-100) fL MCH (26-32) pg MCHC (32-36) g/dL RDW (11.5-14.0) % Plt Count (150-450) x10^3/uL MPV (7.5-11.0) fL Gran % (36.0-66.0) % Immature Gran % (Auto) (0.00-0.4) % Nucleat RBC Rel Count (0.00-0.1) % Eos # (Auto) (0-0.5) x10^3/uL Immature Gran # (Auto) (0.00-0.03) x10^3u/L Absolute Lymphs (auto) (1.0-4.6) x10^3/uL Absolute Monos (auto) (0.0-1.3) x10^3/uL Absolute Nucleated RBC (0.00-0.01) x10^3u/L Lymphocytes % (24.0-44.0) % Monocytes % (0.0-12.0) % Eosinophils % (0.00-5.0) % Basophils % (0.0-0.4) % Absolute Granulocytes (1.4-6.9) x10^3/uL Basophils # (0-0.4) x10^3/uL Sodium (137-145) mmol/L Potassium (3.5-5.1) mmol/L Chloride (98-107) mmol/L Carbon Dioxide (22-30) mmol/L Anion Gap (5-15) MEQ/L BUN (9-20) mg/dL Creatinine (0.66-1.25) mg/dL Estimated GFR ML/MIN Glucose (74-106) mg/dL POC Glucometer 380 H (74 to 106) mg/dL Calcium (8.4-10.2) mg/dL Total Bilirubin (0.2-1.3) mg/dL AST (17-59) U/L ALT (0-50) U/L Alkaline Phosphatase (38-126) U/L Troponin I (0.000-0.034) ng/mL Serum Total Protein (6.3-8.2) g/dL Albumin (3.5-5.0) g/dL Urinalys Dipstick Clnc Urine Color (YELLOW) Urine Appearance (CLEAR) Urine pH (5-6) Ur Specific [facility] (1.005-1.025) POC Urine Protein Conf (Negative) Urine Ketones (NEGATIVE) Urine Nitrite (NEGATIVE) Urine Bilirubin (NEGATIVE) Urine Urobilinogen (0-1) mg/dL Urine Leukocytes (NEGATIVE) Urine WBC (Auto) Urine RBC (Auto) U Epithel Cells (Auto) Urine Bacteria (Auto) Urine RBC (0-5) Uche/ul Ur Culture Indicated? Urine Glucose (NEGATIVE) mg/dL - Progress Progress: improved Progress Note: Patient reassessed. He feels well. Glucose significantly improved. Troponin negative x2. Patient eager to leave. Will discharge at this time. Vital stable. Patient voices no other complaints or concerns at this time. IV fluids infused to address the hyponatremia and hyperglycemia Portions of this note were created with voice recognition technology. There may be grammatical, spelling, punctuation or sound alike errors 09/25/21 19:31 Counseled pt/family regarding: lab results, diagnosis, rad results - Departure Departure Disposition: Home Clinical Impression: Hyperglycemia, Hyponatremia Condition: Stable Critical Care Time: No Referrals: STACY FLOWER, [employer] [Primary Care Provider] - Follow up/PCP as directed Additional Instructions: Discharge/Care Plan ADRIÁNSIRI RAMIREZ was seen on 09/25/21 in the Emergency Room. The patient was counseled regarding Diagnosis,Lab results, Imaging studies, need for follow up and when to return to the Emergency Room. Prescriptions given: Discharge Note I have spoken with the patient and/or caregivers. I have explained the patient's condition, diagnosis and treatment plan based on the information available to me at this time. I have answered the patient's and/or caregiver's questions and addressed any concerns. The patient and/or caregivers have as good understanding of the patient's diagnosis, condition and treatment plan as can be expected at this point. The vital signs have been stable. The patient's condition is stable and appropriate for discharge from the emergency department. The patient will pursue further outpatient evaluation with the primary care phys ician or other designated or consulting physician as outlined in the discharge instructions. The patient and/or caregivers are agreeable to this plan of care and follow-up instructions have been explained in detail. The patient and/or caregivers have received these instruction. The patient/and or caregivers are aware that any significant change in condition or worsening of symptoms should prompt an immediate return to this or the closest emergency department or call 911.
[2021-09-25 18:11] LABS: Appearance CLEAR (CLEAR); Bilirubin NEGATIVE (NEGATIVE); Dipstick done @ ? MAIN LAB; Glucose 500 mg/dL (NEGATIVE); Ketones NEGATIVE (NEGATIVE); Nitrite NEGATIVE (NEGATIVE); Ph 5.5 (5-6); Protein,Urine Dip NEGATIVE (Negative); RBC NEGATIVE Ery/ul (0-5); Urobilinogen 0.2 mg/dL (0-1)
[2021-09-25 18:13] LABS: Urine Cultured Indicated? NO
[2021-09-25 19:35] VITALS: BP 155/96; PULSE 92
== END 2021-09-25 19:37 | disposition home or self-care (01) ==
LOC: ED 14:39
DX: E11.65 Type 2 diabetes mellitus with hyperglycemia (principal); E87.1 Hypo-osmolality and hyponatremia; R51.9 Headache, unspecified; H53.8 Other visual disturbances; E78.5 Hyperlipidemia, unspecified; I10 Essential (primary) hypertension; Z79.84 Long term (current) use of oral hypoglycemic drugs; Z79.899 Other long term (current) drug therapy; Z28.310 Unvaccinated for COVID-19
CPT/HCPCS: 36000; 36415; 80053; 81015; 82947; 84484; 85025; 93005; 93041; 94760; 96360; 96361; 99284

== ENCOUNTER 2022-12-17 13:32 | Emergency (ER) | payer OTHER ==
--- NOTE | 2022-12-17 13:34 | ERPHSYRPT ---
- History of Present Illness Time Seen by Provider: 12/17/22 13:34 Source: patient Exam Limitations: no limitations Physician History: This is a 57-year-old white male patient who has been out of his diabetic medication for the better part of 2 months. He recently was seen by Dr. Naranjo in his office and Dr. Naranjo is attempting to work with the patient's health insurance company to cover the diabetic medication that he feels is effective for him. Prior to being off his diabetic medication his blood sugars typically run around 200. In the last several days he has noticed his blood sugar being in the range of 400-600. Today it was over 500 and he called his primary care physician's office and they told him to come to the emergency department to get his blood sugar levels lowered. Patient has a history of hyperlipidemia and hypertension. In the last few days he has noticed a headache but no other symptoms. He has not had a fever. He denies cough. He denies chest pain and he denies shortness of breath. Timing/Duration: other (2 months) Severity: mild Associated Symptoms: denies symptoms Allergies/Adverse Reactions: BEE STINGS Allergy (Severe, Uncoded 12/17/22 13:59) Swelling Home Medications: Tamsulosin HCl 0.4 mg [Flomax 0.4 MG] 1 tab PO DAILY 11/26/20 [History] Lisinopril 20 mg [Zestril 20 MG] 20 mg PO DAILY 08/20/21 [History] Atorvastatin Calcium [Lipitor] 20 mg PO DAILY 12/17/22 [History] Hx Tetanus, Diphtheria Vaccination/Date Given: No Hx Influenza Vaccination/Date Given: No Hx Pneumococcal Vaccination/Date Given: No Travel Risk - International Travel Have you traveled outside of the country in past 3 weeks: No - Coronavirus Screening Are you exhibiting any of the following symptoms?: No Close contact with a COVID-19 positive Pt in past 14-21 Days: No - Vaccine Status Have you recieved a Covid-19 vaccination: No - Review of Systems Constitutional: No Symptoms Eyes: No Symptoms Ears, Nose, & Throat: No Symptoms Respiratory: No Symptoms Cardiac: No Symptoms Abdominal/Gastrointestinal: No Symptoms Genitourinary Symptoms: No Symptoms Musculoskeletal: No Symptoms Skin: No Symptoms Neurological: Headache Psychological: No Symptoms (Mild over the last 2 to 3 days) Endocrine: No Symptoms Hematologic/Lymphatic: No Symptoms Immunological/Allergic: No Symptoms All Other Systems: Reviewed and Negative - Past Medical History Pertinent Past Medical History: Yes Neurological History: No Pertinent History ENT History: No Pertinent History Cardiac History: High Cholesterol, Hypertension Respiratory History: No Pertinent History Endocrine Medical History: Diabetes Type II Musculoskeletal History: Fractures GI Medical History: No Pertinent History History: No Pertinent History Psycho-Social History: No Pertinent History Male Reproductive Disorders: No Pertinent History Other Medical History: HEMACROMITOSIS - Past Surgical History Past Surgical History: Yes Neuro Surgical History: No Pertinent History Cardiac: No Pertinent History Respiratory: No Pertinent History Gastrointestinal: No Pertinent History Genitourinary: No Pertinent History Musculoskeletal: Joint Replacement, Orthopedic Surgery Male Surgical History: No Pertinent History Other Surgical History: knee, - Social History Smoking Status: Former smoker Exposure to second hand smoke: No Drug Use: none Patient Lives Alone: No Significant Family History: no pertinent family hx - Nursing Vital Signs Nursing Vital Signs: Initial Vital Signs Temperature 97.2 F 12/17/22 13:58 Pulse Rate 94 H 12/17/22 13:58 Respiratory Rate 18 12/17/22 13:58 Blood Pressure 138/88 12/17/22 13:58 O2 Sat by Pulse Oximetry 96 12/17/22 13:58 Pain Scale Pain Intensity 3 - Physical Exam General Appearance: no apparent distress, alert Eye Exam: PERRL/EOMI Ears, Nose, Throat Exam: normal ENT inspection, moist mucous membranes Neck Exam: normal inspection, non-tender, supple, full range of motion Respiratory Exam: normal breath sounds, lungs clear, airway intact, No chest tenderness, No respiratory distress Cardiovascular Exam: regular rate/rhythm, normal heart sounds, normal peripheral pulses Gastrointestinal/Abdomen Exam: soft, normal bowel sounds, No tenderness Rectal Exam: not done Back Exam: normal inspection, normal range of motion, No CVA tenderness, No vertebral tenderness Extremity Exam: normal inspection, normal range of motion, pelvis stable Neurologic Exam: alert, oriented x 3, cooperative, predatory game hunter II-XII nml as tested, normal mood/affect, nml cerebellar function, nml station & gait, sensation nml Skin Exam: normal color, warm, dry Lymphatic Exam: No adenopathy SpO2 Interpretation: normal O2 Delivery: Room Air - Course Nursing assessment & vital signs reviewed: Yes Ordered Tests: Active Orders 24 hr Category Date Time Status Shrinker STAT Care 12/17/22 14:13 Active IV Insertion STAT Care 12/17/22 14:12 Active Pulse Oximetry (ED) STAT Care 12/17/22 14:12 Active CBC W DIFF Stat Lab 12/17/22 13:48 Completed CMP Stat Lab 12/17/22 13:48 Completed MAGNESIUM Stat Lab 12/17/22 13:48 Completed POCT GLUCOSE Stat Lab 12/17/22 13:42 Completed POCT GLUCOSE Stat Lab 12/17/22 15:47 Completed UA W/RFX UR CULTURE Stat Lab 12/17/22 14:36 Completed Medication Summary Discontinued Medications Generic Name Dose Route Start Last Admin Trade Name Freq PRN Reason Stop Dose Admin Sodium Chloride 1,000 mls @ 999 mls/hr 12/17/22 14:12 12/17/22 15:37 Sodium Chloride 0.9% 1000 Ml IV 12/17/22 15:12 Infused .Q1H1M STA Infusion Sodium Chloride Confirm 12/17/22 14:31 Sodium Chloride 0.9% 1000 Ml Administered 12/17/22 14:32 Dose 1,000 mls @ ud .ROUTE .STK-MED ONE Insulin Human Regular 12 unit 12/17/22 14:13 12/17/22 15:02 Insulin Regular, Human 1 Unit IV 12/17/22 14:14 12 unit STAT ONE Administration Insulin Human Regular Confirm 12/17/22 14:30 Insulin Regular, Human 1 Unit Administered 12/17/22 14:31 Dose 12 unit .ROUTE .STK-MED ONE Insulin Human Regular 8 unit 12/17/22 15:58 12/17/22 16:26 Insulin Regular, Human 1 Unit IV 12/17/22 15:59 8 unit STAT ONE Administration Insulin Human Regular Confirm 12/17/22 16:21 Insulin Regular, Human 1 Unit Administered 12/17/22 16:22 Dose 8 unit .ROUTE .STK-MED ONE Lab/Rad Data: Laboratory Result Diagrams 12/17/22 13:48 12/17/22 13:48 Laboratory Results 12/17/22 12/17/22 12/17/22 Range/Units 15:47 14:36 13:48 WBC (4.0-10.5) x10^3/uL RBC (4.1-5.6) x10^6/uL Hgb (12.5-18.0) g/dL Hct (42-50) % MCV (78-100) fL MCH (26-32) pg MCHC (32-36) g/dL RDW (11.5-14.0) % Plt Count (150-450) x10^3/uL MPV (7.5-11.0) fL Gran % (36.0-66.0) % Immature Gran % (Auto) (0.00-0.4) % Nucleat RBC Rel Count (0.00-0.1) % Eos # (Auto) (0-0.5) x10^3/uL Immature Gran # (Auto) (0.00-0.03) x10^3u/L Absolute Lymphs (auto) (1.0-4.6) x10^3/uL Absolute Monos (auto) (0.0-1.3) x10^3/uL Absolute Nucleated RBC (0.00-0.01) x10^3u/L Lymphocytes % (24.0-44.0) % Monocytes % (0.0-12.0) % Eosinophils % (0.00-5.0) % Basophils % (0.0-0.4) % Absolute Granulocytes (1.4-6.9) x10^3/uL Basophils # (0-0.4) x10^3/uL Sodium 132 L (137-145) mmol/L Potassium 4.3 (3.5-5.1) mmol/L Chloride 100 (98-107) mmol/L Carbon Dioxide 20 L (22-30) mmol/L Anion Gap 16.5 H (5-15) MEQ/L BUN 14 (9-20) mg/dL Creatinine 0.81 (0.66-1.25) mg/dL Estimated GFR 102.8 ML/MIN Glucose 548 H* (74-106) mg/dL POC Glucometer 367 H (50 to 500) mg/dL Calcium 8.7 (8.4-10.2) mg/dL Magnesium 2.0 (1.6-2.3) mg/dL Total Bilirubin 1.00 (0.2-1.3) mg/dL AST 25 (17-59) U/L ALT 37 (0-50) U/L Alkaline Phosphatase 127 H (38-126) U/L Serum Total Protein 6.8 (6.3-8.2) g/dL Albumin 4.1 (3.5-5.0) g/dL Urine Color Yellow (Yellow) Urine Appearance Clear (Clear) Urine pH 6.0 (4.6-8.0) Ur Specific Hayden 1.025 (1.005-1.030) Urine Protein Negative (Negative) Urine Glucose (UA) >=1000 A (Negative) mg/dL Urine Ketones Negative (Negative) Urine Blood Negative (Negative) Urine Nitrite Negative (Negative) Urine Bilirubin Negative (Negative) Urine Urobilinogen 0.2 (0.2) mg/dL Ur Leukocyte Esterase Negative (Negative) U Hyaline Cast (Auto) NONE SEEN (0-2) /LPF Urine Microscopic RBC 0-2 (0-5) /HPF Urine Microscopic WBC 0-2 (0-5) /HPF Ur Epithelial Cells None Seen (None Seen) /HPF Urine Bacteria None Seen (None Seen) /HPF Urine Culture Reflexed NO (NO) 12/17/22 12/17/22 Range/Units 13:48 13:42 WBC 5.8 (4.0-10.5) x10^3/uL RBC 4.62 (4.1-5.6) x10^6/uL Hgb 15.4 (12.5-18.0) g/dL Hct 42.9 (42-50) % MCV 92.9 (78-100) fL MCH 33.3 H (26-32) pg MCHC 35.9 (32-36) g/dL RDW 11.4 L (11.5-14.0) % Plt Count 222 (150-450) x10^3/uL MPV 9.7 (7.5-11.0) fL Gran % 68.4 H (36.0-66.0) % Immature Gran % (Auto) 0.7 H (0.00-0.4) % Nucleat RBC Rel Count 0.0 (0.00-0.1) % Eos # (Auto) 0.03 (0-0.5) x10^3/uL Immature Gran # (Auto) 0.04 H (0.00-0.03) x10^3u/L Absolute Lymphs (auto) 1.32 (1.0-4.6) x10^3/uL Absolute Monos (auto) 0.39 (0.0-1.3) x10^3/uL Absolute Nucleated RBC 0.00 (0.00-0.01) x10^3u/L Lymphocytes % 22.7 L (24.0-44.0) % Monocytes % 6.7 (0.0-12.0) % Eosinophils % 0.5 (0.00-5.0) % Basophils % 1.0 (0.0-0.4) % Absolute Granulocytes 3.98 (1.4-6.9) x10^3/uL Basophils # 0.06 (0-0.4) x10^3/uL Sodium (137-145) mmol/L Potassium (3.5-5.1) mmol/L Chloride (98-107) mmol/L Carbon Dioxide (22-30) mmol/L Anion Gap (5-15) MEQ/L BUN (9-20) mg/dL Creatinine (0.66-1.25) mg/dL Estimated GFR ML/MIN Glucose (74-106) mg/dL POC Glucometer 568 H* (50 to 500) mg/dL Calcium (8.4-10.2) mg/dL Magnesium (1.6-2.3) mg/dL Total Bilirubin (0.2-1.3) mg/dL AST (17-59) U/L ALT (0-50) U/L Alkaline Phosphatase (38-126) U/L Serum Total Protein (6.3-8.2) g/dL Albumin (3.5-5.0) g/dL Urine Color (Yellow) Urine Appearance (Clear) Urine pH (4.6-8.0) Ur Specific Hayden (1.005-1.030) Urine Protein (Negative) Urine Glucose (UA) (Negative) mg/dL Urine Ketones (Negative) Urine Blood (Negative) Urine Nitrite (Negative) Urine Bilirubin (Negative) Urine Urobilinogen (0.2) mg/dL Ur Leukocyte Esterase (Negative) U Hyaline Cast (Auto) (0-2) /LPF Urine Microscopic RBC (0-5) /HPF Urine Microscopic WBC (0-5) /HPF Ur Epithelial Cells (None Seen) /HPF Urine Bacteria (None Seen) /HPF Urine Culture Reflexed (NO) - Progress Progress: improved, re-examined Progress Note: 12/17/22 14:37 This patient's medical issue is 1 of moderate complexity. The level complexity in the work-up performed is based on review of the patient's past medical history, review the patient's medication list, review the patient drug allergy list, history present illness and physical findings on examination. The work-up in this patient includes placement of intravenous line, infusion of normal saline solution, CBC, CMP, urinalysis, magnesium level, infusion of 12 mg of intravenous regular insulin. 12/17/22 15:20 I interpreted the patient's laboratory results. The patient does not have DKA. He has hyperglycemia. There are no ketones in the patient's urine. Patient will need to follow-up with his primary prescribing provider tomorrow, 12/18/2002, to obtain prescriptions to control his diabetes/hyperglycemia. Counseled pt/family regarding: lab results, diagnosis, need for follow-up Medical Desision Making - Diagnostic Testing Diagnostic test were ordered, analyzed, and reviewed by me: Yes - Risk of complications Low Risk: Low risk of morbidity from additional dx testing or treatment - Departure Departure Disposition: Home Clinical Impression: Hyperglycemia due to diabetes mellitus Condition: Stable Critical Care Time: No Referrals: NANO NARANJO MD [Primary Care Provider] - Follow up/PCP as directed Additional Instructions: Drink plenty of fluids. Monitor your blood sugar closely. Contact your primary care provider tomorrow morning to make arrangements to obtain medication to control your hyperglycemia/diabetes.
[2022-12-17 13:59] VITALS: RESP 18; TEMP 97.2
[2022-12-17] MEDS ORDERED: Sodium Chloride 0.9% 1000 ML 1,000 ML IV STA (14:12)
[2022-12-17] MEDS ORDERED: HUMULIN R IV ONE ×2 (14:13→15:58)
[2022-12-17 14:25] LABS: Absolute Neutrophil Ct (ANC) 3.98 x10^3/uL (1.4-6.9); Basophil (Absolute #) 0.06 x10^3/uL (0-0.4); Eosinophil % 0.5 % (0.00-5.0); Eosinophil (Absolute #) 0.03 x10^3/uL (0-0.5); Hematocrit 42.9 % (42-50); Hemoglobin 15.4 g/dL (12.5-18.0); IMMATURE GRAN # 0.04 x10^3u/L (0.00-0.03); IMMATURE GRAN % 0.7 % (0.00-0.4); Lymphocyte (Absolute #) 1.32 x10^3/uL (1.0-4.6); Lymphocytes % 22.7 % (24.0-44.0); Mean Cell Volume 92.9 fL (78-100); Mean Corpuscular Hemoglobin 33.3 pg (26-32); Mean Corpuscular Hgb Concent. 35.9 g/dL (32-36); Mean Platelet Volume 9.7 fL (7.5-11.0); Monocyte (Absolute #) 0.39 x10^3/uL (0.0-1.3); Monocytes % 6.7 % (0.0-12.0); Neutrophil % 68.4 % (36.0-66.0); Platelet Count 222 x10^3/uL (150-450); Red Blood Count 4.62 x10^6/uL (4.1-5.6); Red Cell Distribution Width 11.4 % (11.5-14.0); White Blood Count 5.8 x10^3/uL (4.0-10.5)
[2022-12-17] MEDS ORDERED: HUMULIN R ONE ×2 (14:30→16:21)
[2022-12-17] MEDS ORDERED: Sodium Chloride 0.9% 1000 ML 1,000 ML ONE (14:31)
[2022-12-17 14:53] LABS: ALBUMIN 4.1 g/dL (3.5-5.0); ANION GAP 16.5 MEQ/L (5-15); Calcium 8.7 mg/dL (8.4-10.2); Creatinine 1 0.81 mg/dL (0.66-1.25); EST GLOMERULAR FILTRATION RATE 102.8 ML/MIN; Potassium 4.3 mmol/L (3.5-5.1); Total Protein 6.8 g/dL (6.3-8.2)
[2022-12-17 15:07] LABS: Appearance Clear (Clear); Bacteria None Seen /HPF (None Seen); Bilirubin Negative (Negative); Blood Negative (Negative); Epithelial Cells None Seen /HPF (None Seen); Glucose, Urine >=1000 mg/dL (Negative); Hyaline Casts NONE SEEN /LPF (0-2); Ketones Negative (Negative); Leukocyte Esterase Negative (Negative); Nitrite Negative (Negative); Protein,Urine Dip Negative (Negative); RBC 0-2 /HPF (0-5); Specific Gravity 1.025 (1.005-1.030); Urobilinogen 0.2 mg/dL (0.2); WBC 0-2 /HPF (0-5)
[2022-12-17 15:10] LABS: ADD URINE CULTURE? NO (NO)
[2022-12-17 15:58] VITALS: O2SAT 97
[2022-12-17 17:20] VITALS: BP 106/68; PULSE 72
== END 2022-12-17 17:41 | disposition home or self-care (01) ==
LOC: ED 13:32
DX: E11.65 Type 2 diabetes mellitus with hyperglycemia (principal); E78.5 Hyperlipidemia, unspecified; I10 Essential (primary) hypertension; Z79.899 Other long term (current) drug therapy; Z28.310 Unvaccinated for COVID-19; Z75.8 Other problems related to medical facilities and other health care
CPT/HCPCS: 36000; 36415; 80053; 81001; 82947; 83735; 85025; 93041; 94760; 96360; 96374; 96376; 99284; J1815

== ENCOUNTER 2023-12-07 09:10 | Emergency (ER) | payer OTHER ==
[2023-12-07] MEDS ORDERED: XYLOCAINE 1% HCL 20 ML MDV ONE (09:49)
[2023-12-07 09:52] VITALS: BP 167/107; PULSE 84; RESP 18; TEMP 98; O2SAT 99
--- NOTE | 2023-12-07 09:53 | ERPHSYRPT ---
- History of Present Illness Time Seen by Provider: 12/07/23 09:50 Source: patient Exam Limitations: no limitations Physician History: 58-year-old male presents to emergency department for evaluation/drainage of a "abscess". Patient states he was diagnosed with a left upper chest abscess by [facility]. Patient completed a course of antibiotics. There is no improvement in the abscess. Patient has yet to schedule an appointment with his primary care physician. No systemic manifestations. Patient states that the area is quite tender. Patient otherwise feels well. No trauma. No nausea no vomiting no diarrhea no rash no fever patient otherwise feels well he voices no other complaints or concerns at this time. Portions of this note were created with voice recognition technology. There may be grammatical, spelling, punctuation or sound alike errors Timing/Duration: week(s) Severity: moderate Associated Symptoms: denies symptoms Allergies/Adverse Reactions: BEE STINGS Allergy (Severe, Uncoded 12/07/23 09:54) Swelling Hx Tetanus, Diphtheria Vaccination/Date Given: No Hx Influenza Vaccination/Date Given: No Hx Pneumococcal Vaccination/Date Given: No - Review of Systems Constitutional: No Symptoms, No Fever, No Chills Eyes: No Symptoms Ears, Nose, & Throat: No Symptoms Respiratory: No Symptoms, No Cough, No Dyspnea Cardiac: No Symptoms, No Chest Pain, No Edema, No Syncope Abdominal/Gastrointestinal: No Symptoms, No Abdominal Pain, No Nausea, No Vomiting, No Diarrhea Genitourinary Symptoms: No Symptoms, No Dysuria Musculoskeletal: No Symptoms, No Back Pain, No Neck Pain Skin: No Symptoms, No Rash Neurological: No Symptoms, No Dizziness, No Focal Weakness, No Sensory Changes Psychological: No Symptoms Endocrine: No Symptoms Hematologic/Lymphatic: No Symptoms Immunological/Allergic: No Symptoms All Other Systems: Reviewed and Negative - Past Medical History Pertinent Past Medical History: Yes Neurological History: No Pertinent History ENT History: No Pertinent History Cardiac History: High Cholesterol, Hypertension Respiratory History: No Pertinent History Endocrine Medical History: Diabetes Type II Musculoskeletal History: Fractures GI Medical History: No Pertinent History History: No Pertinent History Psycho-Social History: No Pertinent History Male Reproductive Disorders: No Pertinent History Other Medical History: HEMACROMITOSIS - Past Surgical History Past Surgical History: Yes Neuro Surgical History: No Pertinent History Cardiac: No Pertinent History Respiratory: No Pertinent History Gastrointestinal: No Pertinent History Genitourinary: No Pertinent History Musculoskeletal: Joint Replacement, Orthopedic Surgery Male Surgical History: No Pertinent History Other Surgical History: knee, Significant Family History: no pertinent family hx - Social History Smoking Status: Former smoker Exposure to second hand smoke: No Drug Use: none Patient Lives Alone: No - Nursing Vital Signs Nursing Vital Signs: Initial Vital Signs Temperature 98.0 F 12/07/23 09:42 Pulse Rate 84 12/07/23 09:42 Respiratory Rate 18 12/07/23 09:42 Blood Pressure 167/107 12/07/23 09:42 O2 Sat by Pulse Oximetry 99 12/07/23 09:42 Pain Scale Pain Intensity 0 - Physical Exam General Appearance: no apparent distress, alert Eye Exam: PERRL/EOMI, eyes nml inspection Ears, Nose, Throat Exam: normal ENT inspection, moist mucous membranes Neck Exam: normal inspection, non-tender, supple, full range of motion Respiratory Exam: normal breath sounds, lungs clear, airway intact, No respiratory distress Cardiovascular Exam: regular rate/rhythm, normal heart sounds, normal peripheral pulses Gastrointestinal/Abdomen Exam: soft, normal bowel sounds, No tenderness, No mass Back Exam: normal inspection, normal range of motion, No CVA tenderness, No vertebral tenderness Extremity Exam: normal inspection, normal range of motion, pelvis stable Neurologic Exam: alert, oriented x 3, cooperative, normal mood/affect, sensation nml, No motor deficits Skin Exam: normal color, warm, dry, other (Left upper chest abscess with early forming cellulitis just superficial to the abscess), No rash Lymphatic Exam: No adenopathy SpO2 Interpretation: normal SpO2: 99 O2 Delivery: Room Air Procedures - Incision and Drainage Time of Procedure: 10:00 Timeout: Performed Site: Left upper chest Anesthesia: 1% Lidocaine (1% lidocaine without epinephrine 3 cc) cc's of anesthesia: 3 Blade Size: 11 I & D Procedure: betadine prep (Prepped with Betadine and alcohol swab) Results: moderate amount pus Progress: Patient tolerated procedure well. No intra or postprocedural complications. - Course Nursing assessment & vital signs reviewed: Yes Ordered Tests: Active Orders 24 hr Category Date Time Status CULTURE,WOUND Stat Lab 12/07/23 10:14 Ordered Medication Summary Discontinued Medications Generic Name Dose Route Start Last Admin Trade Name Freq PRN Reason Stop Dose Admin Lidocaine HCl Confirm 12/07/23 09:49 Lidocaine Hcl 1% 20 Ml Mdv 20 Ml Ml Administered 12/07/23 09:50 Dose 4 ml .ROUTE .STK-MED ONE Lidocaine HCl 4 ml 12/07/23 09:50 12/07/23 10:10 Lidocaine Hcl 1% 20 Ml Mdv 20 Ml Ml IJ 12/07/23 09:51 4 ml STAT ONE Administration - Progress Progress: improved Progress Note: 58-year-old male presents to our ED for evaluation of a left upper chest abscess. Patient completed antibiotic therapy with no significant improvement. Physical exam reveals a left upper chest abscess with underlying fluctuance. The area immediately superficial to the abscess is cellulitic. I&D completed. Patient tolerated procedure well. Wound cultures pending. Prescription for Kef vic forwarded to patient's pharmacy. Patient advised to follow-up with Dr. Naranjo on Wednesday for removal of packing and wound assessment. Patient agrees to follow-up as planned. He voices no other complaints or concerns at this time. Portions of this note were created with voice recognition technology. There may be grammatical, spelling, punctuation or sound alike errors Complexity of problem addressed is moderate acute complicated. No critical care time. Complex of data reviewed and analyzed is none. No specialized testing ordered. Diagnosis made based on history and physical exam. Wound cultures pending. Risk of complication and or risk of morbidity/mortality of patient management is moderate. A prescription for Keflex forwarded to patient's pharmacy. Vital stable. Time spent to discharge patient is approximately 10 minutes. Plan of care established for shared decision making. No social determinants of health present to impede follow-up. Portions of this note were created with voice recognition technology. There may be grammatical, spelling, punctuation or sound alike errors 12/07/23 10:10 12/07/23 10:23 Counseled pt/family regarding: diagnosis, need for follow-up - Departure Departure Disposition: Home Clinical Impression: Abscess, Cellulitis Condition: Stable Critical Care Time: No Referrals: NANO NARANJO MD [Primary Care Provider] - Follow up/PCP as directed Instructions: Cellulitis (Skin Infection), Adult ED Additional Instructions: Discharge/Care Plan SIRI SAMPSON was seen on 12/07/23 in the Emergency Room. The patient was counseled regarding Diagnosis,Lab results, Imaging studies, need for follow up and when to return to the Emergency Room. Prescriptions given: Discharge Note I have spoken with the patient and/or caregivers. I have explained the patient's condition, diagnosis and treatment plan based on the information available to me at this time. I have answered the patient's and/or caregiver's questions and addressed any concerns. The patient and/or caregivers have as good understanding of the patient's diagnosis, condition and treatment plan as can be expected at this point. The vital signs have been stable. The patient's condition is stable and appropriate for discharge from the emergency department. The patient will pursue further outpatient evaluation with the primary care physician or other designated or consulting physician as outlined in the discharge instructions. The patient and/or caregivers are agreeable to this plan of care and follow-up instructions have been explained in detail. The patient and/or caregivers have received these instruction. The patient/and or caregivers are aware that any significant change in condition or worsening of symptoms should prompt an immediate return to this or the closest emergency department or call 911. Prescriptions: Cephalexin Mh 500 mg [Keflex 500 mg] 500 mg PO TID 7 Days #21 cap
[2023-12-07] MEDS: XYLOCAINE 1% HCL 20 ML MDV IJ ONE (10:10)
== END 2023-12-07 10:24 | disposition home or self-care (01) ==
LOC: ED 09:10
DX: L02.213 Cutaneous abscess of chest wall (principal); L03.313 Cellulitis of chest wall; E78.5 Hyperlipidemia, unspecified; I10 Essential (primary) hypertension; E11.9 Type 2 diabetes mellitus without complications; Z79.899 Other long term (current) drug therapy
CPT/HCPCS: 10060; 87070; 99283

== ENCOUNTER 2024-03-08 18:37 | Emergency (ER) | payer SELFPAY ==
[2024-03-08 18:53] VITALS: TEMP 96.9
[2024-03-08] MEDS ORDERED: DECADRON 10MG INJ. ONE (19:04)
[2024-03-08] MEDS: DECADRON 10MG INJ. IM ONE (19:05)
[2024-03-08] MEDS: TORAdol 30 mg Injection IM ONE (19:06)
[2024-03-08] MEDS ORDERED: TORAdol 30 mg Injection ONE (19:06)
[2024-03-08 19:18] LABS: Absolute Neutrophil Ct (ANC) 4.48 x10^3/uL (1.78-5.38); BASOPHIL % 1.6 % (0.2-1.2); Basophil (Absolute #) 0.11 x10^3/uL (0.01-0.08); Eosinophil % 0.6 % (0.8-7.0); Eosinophil (Absolute #) 0.04 x10^3/uL (0.04-0.54); Hematocrit 44.4 % (40.1-51.0); Hemoglobin 16.5 g/dL (13.7-17.5); IMMATURE GRAN # 0.07 x10^3u/L (0.001-0.031); Lymphocyte (Absolute #) 1.76 x10^3/uL (1.32-3.57); Lymphocytes % 25.8 % (21.8-53.1); Mean Cell Volume 86.7 fL (79.0-92.2); Mean Corpuscular Hemoglobin 32.2 pg (25.7-32.2); Mean Corpuscular Hgb Concent. 37.2 g/dL (32.3-36.5); Monocyte (Absolute #) 0.37 x10^3/uL (0.30-0.82); Monocytes % 5.4 % (5.3-12.2); Neutrophil % 65.6 % (34.0-67.9); Platelet Count 279 x10^3/uL (163-337); Red Blood Count 5.12 x10^6/uL (4.63-6.08); Red Cell Distribution Width 11.4 % (11.6-14.4); White Blood Count 6.8 x10^3/uL (4.23-9.07)
[2024-03-08 19:29] LABS: Appearance Clear (Clear); Bacteria None Seen /HPF (None Seen); Bilirubin Negative (Negative); Blood Negative (Negative); Epithelial Cells None Seen /HPF (None Seen); Glucose, Urine >=1000 mg/dL (Negative); Hyaline Casts NONE SEEN /LPF (0-2); Ketones Negative (Negative); Leukocyte Esterase Negative (Negative); Nitrite Negative (Negative); Ph 5.5 (4.6-8.0); Protein,Urine Dip Negative (Negative); RBC 0-2 /HPF (0-5); Urobilinogen 0.2 mg/dL (0.2); WBC 0-2 /HPF (0-5)
[2024-03-08 19:31] LABS: ALBUMIN 4.4 g/dL (3.5-5.0); ANION GAP 18.5 MEQ/L (5-15); Calcium 9.1 mg/dL (8.4-10.2); Creatinine 1 0.74 mg/dL (0.66-1.25); Potassium 4.5 mmol/L (3.5-5.1); Total Protein 7.2 g/dL (6.3-8.2)
[2024-03-08 19:48] VITALS: RESP 19
--- NOTE | 2024-03-08 19:56 | ERPHSYRPT ---
- History of Present Illness Time Seen by Provider: 03/08/24 19:00 Source: patient Exam Limitations: no limitations Patient Subjective Stated Complaint: C/O lower left back pain for approx one week. Denies trauma or injury. States pain is a dull constant ache with intermit tent sharp pain. Denies issues without bowel or bladder. Triage Nursing Assessment: Patient ambulated back to ER without difficulties. He is alert and oriented. NO skin alterations noted to area of reported pain. Area is tender to light palpation. Physician History: 58-year-old male presents to our ED for evaluation of left lower back pain. Patient reports the pain has been ongoing for approximately 1 week. Patient works driving heavy equipment. Patient states that his back gets radha during working hours as the surface that he works on is uneven and sometimes bumpy. However denies trauma. No fever. No hematuria no dysuria. Pain described as a dull ache with occasionally twinges of sharp pain. Pain at this time is dull. No change in bowel bladder function. No saddle anesthesia. No recent back procedure. Patient otherwise feels well. He voices no other complaints or concerns at this time. Portions of this note were created with voice recognition technology. There may be grammatical, spelling, punctuation or sound alike errors Timing/Duration: week(s) (1 week) Severity: moderate Modifying Factors: Improves With: nothing Associated Symptoms: denies symptoms Allergies/Adverse Reactions: BEE STINGS Allergy (Severe, Uncoded 03/08/24 18:44) Swelling Hx Tetanus, Diphtheria Vaccination/Date Given: Yes Hx Influenza Vaccination/Date Given: No Hx Pneumococcal Vaccination/Date Given: No Immunizations Up to Date: Yes Travel Risk - International Travel Have you traveled outside of the country in past 3 weeks: No - Emerging Infectious Disease Are you exhibiting symptoms associated with any current EIDs: No - Review of Systems Constitutional: No Symptoms, No Fever, No Chills Eyes: No Symptoms Ears, Nose, & Throat: No Symptoms Respiratory: No Symptoms, No Cough, No Dyspnea Cardiac: No Symptoms, No Chest Pain, No Edema, No Syncope Abdominal/Gastrointestinal: No Symptoms, No Abdominal Pain, No Nausea, No Vomiting, No Diarrhea Genitourinary Symptoms: No Symptoms, No Dysuria Musculoskeletal: No Symptoms, No Back Pain, No Neck Pain Skin: No Symptoms, No Rash Neurological: No Symptoms, No Dizziness, No Focal Weakness, No Sensory Changes Psychological: No Symptoms Endocrine: No Symptoms Hematologic/Lymphatic: No Symptoms Immunological/Allergic: No Symptoms All Other Systems: Reviewed and Negative - Past Medical History Pertinent Past Medical History: Yes Neurological History: No Pertinent History ENT History: No Pertinent History Cardiac History: High Cholesterol, Hypertension Respiratory History: No Pertinent History Endocrine Medical History: Diabetes Type II Musculoskeletal History: Fractures GI Medical History: No Pertinent History History: No Pertinent History Psycho-Social History: No Pertinent History Male Reproductive Disorders: No Pertinent History Other Medical History: HEMACROMITOSIS - Past Surgical History Past Surgical History: Yes Neuro Surgical History: No Pertinent History Cardiac: No Pertinent History Respiratory: No Pertinent History Gastrointestinal: No Pertinent History Genitourinary: No Pertinent History Musculoskeletal: Joint Replacement, Orthopedic Surgery Male Surgical History: No Pertinent History Other Surgical History: knee Significant Family History: no pertinent family hx - Social History Smoking Status: Never smoker Exposure to second hand smoke: Yes Drug Use: none Patient Lives Alone: No - Social Determinants of Health Will the patient participate in the screening: Yes Do you worry about a steady place to live?: No Do you have any problems with any of the following?: No known problems In the past 12 months,have you had to go without utilities?: No Transportation Issues: No Has anyone in your support network made you feel unsafe?: No Have you or anyone in your house had to go without enough: No - Nursing Vital Signs Nursing Vital Signs: Initial Vital Signs Temperature 96.9 F 03/08/24 18:45 Pulse Rate 110 H 03/08/24 18:45 Respiratory Rate 18 03/08/24 18:45 Blood Pressure 165/98 03/08/24 18:45 O2 Sat by Pulse Oximetry 97 03/08/24 18:45 Pain Scale Pain Intensity [Left lower 3 back] Pain Intensity 4 - Physical Exam General Appearance: no apparent distress, alert Eye Exam: PERRL/EOMI, eyes nml inspection Ears, Nose, Throat Exam: normal ENT inspection, moist mucous membranes Neck Exam: normal inspection, non-tender, supple, full range of motion Respiratory Exam: normal breath sounds, lungs clear, No respiratory distress Cardiovascular Exam: regular rate/rhythm, normal heart sounds, normal peripheral pulses Gastrointestinal/Abdomen Exam: soft, normal bowel sounds, No tenderness, No mass Back Exam: normal inspection, normal range of motion, other (Tenderness to palpation left lower back. Positive left costovertebral angle tenderness), No CVA tenderness, No vertebral tenderness Extremity Exam: normal inspection, normal range of motion, pelvis stable Neurologic Exam: alert, oriented x 3, cooperative, normal mood/affect, sensation nml, No motor deficits Skin Exam: normal color, warm, dry, No rash Lymphatic Exam: No adenopathy SpO2: 97 - Course Nursing assessment & vital signs reviewed: Yes - CT Exams Abdomen/Pelvis CT Interpretation: Tele-radiologist Report (Mild diffuse fecal stasis, 14.8 cm splenomegaly, old right rib fracture, spondylosis, right hip degenerative joint disease T11 Schmorl's node) Ordered Tests: Active Orders 24 hr Category Date Time Status AMA [Release AMA] OM.NOW Care 03/08/24 19:51 Active ABDOMEN AND PELVIS W/0 CONTRAS [CT] Stat Exams 03/08/24 18:59 Taken CBC W DIFF Stat Lab 03/08/24 19:15 Completed CMP Stat Lab 03/08/24 19:15 Completed UA W/RFX UR CULTURE Stat Lab 03/08/24 19:03 Completed Medication Summary Discontinued Medications Generic Name Dose Route Start Last Admin Trade Name Freq PRN Reason Stop Dose Admin Dexamethasone Sodium Phosphate 10 mg 03/08/24 19:03 03/08/24 19:05 Dexamethasone Sod Phosphate 10 Mg/Ml IM 03/08/24 19:04 10 mg STAT ONE Administration Dexamethasone Sodium Phosphate Confirm 03/08/24 19:04 Dexamethasone Sod Phosphate 10 Mg/Ml Administered 03/08/24 19:05 Dose 10 mg .ROUTE .STK-MED ONE Ketorolac Tromethamine 60 mg 03/08/24 19:03 03/08/24 19:06 Ketorolac Tromethamine 30 Mg/Ml Inj IM 03/08/24 19:04 60 mg STAT ONE Administration Ketorolac Tromethamine Confirm 03/08/24 19:06 Ketorolac Tromethamine 30 Mg/Ml Inj Administered 03/08/24 19:07 Dose 60 mg .ROUTE .STK-MED ONE Lab/Rad Data: Laboratory Result Diagrams 03/08/24 19:15 03/08/24 19:15 Laboratory Results 03/08/24 03/08/24 03/08/24 Range/Units 19:15 19:15 19:03 WBC 6.8 (4.23-9.07) x10^3/uL RBC 5.12 (4.63-6.08) x10^6/uL Hgb 16.5 (13.7-17.5) g/dL Hct 44.4 (40.1-51.0) % MCV 86.7 (79.0-92.2) fL MCH 32.2 (25.7-32.2) pg MCHC 37.2 H (32.3-36.5) g/dL RDW 11.4 L (11.6-14.4) % Plt Count 279 (163-337) x10^3/uL MPV 9.0 L (9.4-12.4) fL Gran % 65.6 (34.0-67.9) % Immature Gran % (Auto) 1.0 H (0.001-0.429) % Nucleat RBC Rel Count 0.0 (0.00-0.2) % Eos # (Auto) 0.04 (0.04-0.54) x10^3/uL Immature Gran # (Auto) 0.07 H (0.001-0.031) x10^3u/L Absolute Lymphs (auto) 1.76 (1.32-3.57) x10^3/uL Absolute Monos (auto) 0.37 (0.30-0.82) x10^3/uL Absolute Nucleated RBC 0.00 (0.00-0.012) x10^3u/L Lymphocytes % 25.8 (21.8-53.1) % Monocytes % 5.4 (5.3-12.2) % Eosinophils % 0.6 L (0.8-7.0) % Basophils % 1.6 H (0.2-1.2) % Absolute Granulocytes 4.48 (1.78-5.38) x10^3/uL Basophils # 0.11 H (0.01-0.08) x10^3/uL Sodium 133 L (135-145) mmol/L Potassium 4.5 (3.5-5.1) mmol/L Chloride 99 (98-107) mmol/L Carbon Dioxide 20 L (22-30) mmol/L Anion Gap 18.5 H (5-15) MEQ/L BUN 14 (9-20) mg/dL Creatinine 0.74 (0.66-1.25) mg/dL Estimated GFR 105.0 ML/MIN Glucose 537 H* (74-106) mg/dL Calcium 9.1 (8.4-10.2) mg/dL Total Bilirubin 1.00 (0.2-1.3) mg/dL AST 28 (17-59) U/L ALT 34 (0-50) U/L Alkaline Phosphatase 118 (38-126) U/L Serum Total Protein 7.2 (6.3-8.2) g/dL Albumin 4.4 (3.5-5.0) g/dL Urine Color Yellow (Yellow) Urine Appearance Clear (Clear) Urine pH 5.5 (4.6-8.0) Ur Specific Goodwin 1.020 (1.005-1.030) Urine Protein Negative (Negative) Urine Glucose (UA) >=1000 A (Negative) mg/dL Urine Ketones Negative (Negative) Urine Blood Negative (Negative) Urine Nitrite Negative (Negative) Urine Bilirubin Negative (Negative) Urine Urobilinogen 0.2 (0.2) mg/dL Ur Leukocyte Esterase Negative (Negative) U Hyaline Cast (Auto) NONE SEEN (0-2) /LPF Urine Microscopic RBC 0-2 (0-5) /HPF Urine Microscopic WBC 0-2 (0-5) /HPF Ur Epithelial Cells None Seen (None Seen) /HPF Urine Bacteria None Seen (None Seen) /HPF Urine Culture Reflexed NO (NO) - Progress Progress: improved Progress Note: 58-year-old male presents to our ED for evaluation of low back pain. Patient's presenting differential included ureterolithiasis. Laboratory workup obtained. We observed a hyperglycemia with an anion gap of 18. UA revealed glucosuria. We advised obtaining an IV to administer IV fluids and insulin to correct patient's glucose and anion gap. Patient adamantly declined. Patient states that his glucose is always high. He admits that he does not take his medications in part due to the cost. Patient states that he felt fine and he did not want to address the glucose abnormality. The risks were discussed. In spite of the risks patient was adamant that he just wanted his low back pain addressed. Patient is of sound mind. Patient is appropriate to make informed and independent medical decisions. Patient understands that leaving AGAINST MEDICAL ADVICE can result in delayed diagnosis, increased risk of morbidity, mortality, short and long-term disability including . In spite of these risks, patient has decided to leave AGAINST MEDICAL ADVICE. Patient understands that he may return to our ED at any point if he reconsiders. Patient agrees to follow-up with his primary care doctor within 48 hours for reevaluation. Patient voices no other complaints or concerns at this time. We will release patient AGAINST MEDICAL ADVICE per their request. AMA form completed. We obtained a CT lumbar spine which reveals mild diffuse fecal stasis splenomegaly and old right rib fracture spondylosis right hip degenerative joint disease and T11 Schmorl's node. Otherwise no acute findings. Patient received Decadron prior to obtaining his lab workup. Patient also received IM Toradol. Patient reassessed pain significantly improved. Patient is ready for discharge. I urged patient to return to our ED if he reconsidered. I also urged patient to follow-up with his primary care doctor within 48 hours for reassessment. Complexity of problem addressed is moderate acute complicated no critical care time. Complexity of data reviewed and analyzed is moderate. Test ordered test reviewed results analyzed and correlated clinically with history and physical exam. Risk of complication and or risk of morbidity/mortality of patient man agement is moderate. Prescription for Toradol forwarded to patient's pharmacy. Vital stable. Time spent to discharge patient is approximately 15 minutes. Plan of care established for shared decision making. No social determinants of health present to impede follow-up. Portions of this note were created with voice recognition technology. There may be grammatical, spelling, punctuation or sound alike errors 03/08/24 20:49 Counseled pt/family regarding: lab results, diagnosis, need for follow-up, rad results - Departure Departure Disposition: AMA Clinical Impression: Hyperglycemia, DKA (diabetic ketoacidosis), Back pain, Glucosuria, Lumbosacral strain, Mild diffuse fecal stasis, Splenomegaly, Spondylosis, Degenerative joint disease of right hip, T11 Schmorl's node Condition: Stable Critical Care Time: No Referrals: NANO NARANJO MD [Primary Care Provider] - Follow up/PCP as directed Additional Instructions: Discharge/Care Plan SIRI SAMPSON was seen on 03/08/24 in the Emergency Room. The patient was counseled regarding Diagnosis,Lab results, Imaging studies, need for follow up and when to return to the Emergency Room. Prescriptions given: Discharge Note I have spoken with the patient and/or caregivers. I have explained the patient's condition, diagnosis and treatment plan based on the information available to me at this time. I have answered the patient's and/or caregiver's questions and addressed any concerns. The patient and/or caregivers have as good understanding of the patient's diagnosis, condition and treatment plan as can be expected at this point. The vital signs have been stable. The patient's condition is stable and appropriate for discharge from the emergency department. The patient will pursue further outpatient evaluation with the primary care physician or other designated or consulting physician as outlined in the discha rge instructions. The patient and/or caregivers are agreeable to this plan of care and follow-up instructions have been explained in detail. The patient and/or caregivers have received these instruction. The patient/and or caregivers are aware that any significant change in condition or worsening of symptoms should prompt an immediate return to this or the closest emergency department or call 911. Prescriptions: Ketorolac Trometh 10 mg Tab [TORAdol 10 MG TABLET] 10 mg PO TID 5 Days #15 tablet
[2024-03-08 20:29] VITALS: BP 146/78; PULSE 99
[2024-03-08 20:54] VITALS: O2SAT 97
--- NOTE | 2024-03-09 08:40 | XRAY ---
Indication: Left flank/back pain 1 week. Multiple contiguous axial images obtained through the abdomen and pelvis without contrast. Comparison: August 20, 2021 Lung bases clear again with a few incidental calcified granulomas. Heart not enlarged. Stomach is markedly distended with food. Noncontrasted stomach and bowel loops appear nonobstructed with normal appendix. There is now mild diffuse scattered colonic fecal debris throughout. Again 14.8 cm splenomegaly with tiny calcified granulomas and chunky benign prostate calcifications. No free fluid/air. Remaining liver, gallbladder, pancreas, spleen, adrenal glands, kidneys, ureters, and bladder are unremarkable for noncontrast exam. Again mild scattered aortoiliac calcification without AAA. Osseous structures intact again with old right lower rib fractures, minimal degenerative changes throughout spine, small T11 Schmorl node, and mild right hip degenerative changes. No ventral or inguinal hernias. Impression: 1. New mild diffuse fecal stasis. 2. Again chronic findings including splenomegaly, benign chunky prostate calcifications, arteriosclerotic disease, chronic bony findings, and old granulomatous disease. 3. No acute findings on this noncontrast exam.
== END 2024-03-08 20:58 | disposition left against medical advice (07) ==
LOC: ED 18:37
DX: E11.65 Type 2 diabetes mellitus with hyperglycemia (principal); E11.10 Type 2 diabetes mellitus with ketoacidosis without coma; R81 Glycosuria; S39.012A Strain of muscle, fascia and tendon of lower back, initial encounter; K59.89 Other specified functional intestinal disorders; R16.1 Splenomegaly, not elsewhere classified; M47.9 Spondylosis, unspecified; M16.11 Unilateral primary osteoarthritis, right hip; M51.44 Schmorl's nodes, thoracic region; E78.5 Hyperlipidemia, unspecified; I10 Essential (primary) hypertension; Z79.899 Other long term (current) drug therapy
CPT/HCPCS: 36415; 74176; 80053; 81001; 85025; 96372; 99284; 99285; J1100; J1885

== ENCOUNTER 2024-11-02 18:54 | Emergency (ER) | payer BC ==
--- NOTE | 2024-11-02 19:21 | ERPHSYRPT ---
- History of Present Illness Source: patient Physician History: The patient reports that he has had swelling over his left elbowOver 2 weeks. He denies any injury. This been no redness or chills. Denies any bony pain. He states just prior to arrival he struck the elbow and had some increased swelling. He has full range of motion. Allergies/Adverse Reactions: BEE STINGS Allergy (Severe, Uncoded 11/02/24 19:05) Swelling Home Medications: Empagliflozin [Jardiance] 10 mg PO DAILY 11/02/24 [History] Losartan Potassium 100 mg PO DAILY 11/02/24 [History] Semaglutide [Ozempic] 1 mg SQ WEEKLY 11/02/24 [History] icosapent ethyL [Vascepa] 2 cap PO BID 11/02/24 [History] Hx Tetanus, Diphtheria Vaccination/Date Given: Yes Hx Influenza Vaccination/Date Given: No Hx Pneumococcal Vaccination/Date Given: No Travel Risk - Emerging Infectious Disease Are you exhibiting symptoms associated with any current EIDs: No - Review of Systems Respiratory: No Symptoms Abdominal/Gastrointestinal: No Symptoms Genitourinary Symptoms: No Symptoms Musculoskeletal: Joint Swelling, No Joint Redness Skin: No Symptoms - Past Medical History Pertinent Past Medical History: Yes Neurological History: No Pertinent History ENT History: No Pertinent History Cardiac History: High Cholesterol, Hypertension Respiratory History: No Pertinent History Endocrine Medical History: Diabetes Type II Musculoskeletal History: Fractures GI Medical History: No Pertinent History History: No Pertinent History Psycho-Social History: No Pertinent History Male Reproductive Disorders: No Pertinent History Other Medical History: HEMACROMITOSIS - Past Surgical History Past Surgical History: Yes Neuro Surgical History: No Pertinent History Cardiac: No Pertinent History Respiratory: No Pertinent History Gastrointestinal: No Pertinent History Genitourinary: No Pertinent History Musculoskeletal: Joint Replacement, Orthopedic Surgery Male Surgical History: No Pertinent History Other Surgical History: knee Significant Family History: no pertinent family hx - Social History Smoking Status: Never smoker Exposure to second hand smoke: Yes Drug Use: none Patient Lives Alone: No - Social Determinants of Health Will the patient participate in the screening: Yes Do you worry about a steady place to live?: No In the past 12 months,have you had to go without utilities?: No Transportation Issues: No Has anyone in your support network made you feel unsafe?: No Have you or anyone in your house had to go w/o enough food: No - Physical Exam General Appearance: no apparent distress, alert Eye Exam: PERRL/EOMI, eyes nml inspection Ears, Nose, Throat Exam: normal ENT inspection, TMs normal, pharynx normal, moist mucous membranes Neck Exam: normal inspection, non-tender, supple, full range of motion Respiratory Exam: normal breath sounds, lungs clear, No respiratory distress Cardiovascular Exam: regular rate/rhythm, normal heart sounds, normal peripheral pulses Gastrointestinal/Abdomen Exam: soft, normal bowel sounds, No tenderness, No mass Back Exam: normal inspection, normal range of motion, No CVA tenderness, No vertebral tenderness Extremity Exam: normal inspection, pelvis stable, other (Left elbow has a small area of olecranon bursal swelling. There is no open wounds. There is no redness. There is no warmth. There is full range of motion and no bony tenderness) Neurologic Exam: alert, oriented x 3, cooperative, normal mood/affect, nml cerebellar function, nml station & gait, sensation nml, No motor deficits Skin Exam: normal color, warm, dry, No rash Lymphatic Exam: No adenopathy - Progress Progress Note: 11/02/24 19:23 Patient has olecranon bursitis. For 2 weeks. Just directly or prior to arrival has slight increase swelling. There is no evidence of any fracture. Given the fact that he has had symptoms for multiple weeks and just had an injury likely chose not to drain it at this time. Try symptomatic treatment if is not resolved having it rechecked outside of the area of trauma for further evaluation - Departure Departure Disposition: Home Clinical Impression: Olecranon bursitis of left elbow Condition: Good Critical Care Time: No Referrals: NANO NARANJO MD [Primary Care Provider, [facility]] - Follow up/PCP as directed Instructions: Bursitis - ED discharge instructions Additional Instructions: Use ice to the area of swelling. Take anti-inflammatory and steroid. Monitor your blood sugars. If there is no resolve next week should be rechecked by your doctor. Return for redness fever chills or concerns Prescriptions: Methylprednisolone Packet [Medrol Dosepack] 0 mg PO DAILY 7 Days #1 packet Naproxen 500 mg [Naprosyn 500 MG] 0 mg PO BID 5 Days #10 tablet
[2024-11-02 19:25] VITALS: TEMP 97
[2024-11-02 19:40] VITALS: BP 140/80; PULSE 93; RESP 16; O2SAT 97
== END 2024-11-02 19:40 | disposition home or self-care (01) ==
LOC: ED 18:54
DX: M70.22 Olecranon bursitis, left elbow (principal); M25.522 Pain in left elbow; I10 Essential (primary) hypertension; E11.9 Type 2 diabetes mellitus without complications; Z79.52 Long term (current) use of systemic steroids; Z79.84 Long term (current) use of oral hypoglycemic drugs; Z79.85 Long-term (current) use of injectable non-insulin antidiabetic drugs; Z79.899 Other long term (current) drug therapy

== ENCOUNTER 2025-01-26 05:46 | Day surgery (SDC) | payer BC ==
[2025-01-26] MEDS ORDERED: CEFAZOLIN SODIUM ONE ×2 (06:23→06:24)
[2025-01-26 06:33] VITALS: RESP 16
[2025-01-26 07:06] LABS: Calcium 9.9 mg/dL (8.4-10.2); Carbon Dioxide 19.0 mmol/L (22-30); Creatinine 1 0.75 mg/dL (0.66-1.25); EST GLOMERULAR FILTRATION RATE 104.0 ML/MIN; Glucose 215.0 mg/dL (74-106); Potassium 4.2 mmol/L (3.5-5.1)
[2025-01-26] MEDS ORDERED: propofoL IV ONE (07:42)
[2025-01-26] MEDS ORDERED: Zofran 4 MG/2 ML VIAL ONE (07:43)
[2025-01-26] MEDS ORDERED: Versed 2 MG/2 ML Injection ONE (08:08)
[2025-01-26] MEDS ORDERED: MARCAINE 0.5%-EPI 1:200,000 VL IJ ONE (08:17)
[2025-01-26] MEDS ORDERED: SUBLIMAZE 100 MCG/2 ML ONE (08:27)
[2025-01-26] MEDS ORDERED: DEXMEDETOMIDINE 80 MCG/20ML-NS IV ONE (08:35)
[2025-01-26] MEDS ORDERED: TORAdol 30 mg Injection ONE (08:53)
[2025-01-26 09:53] VITALS: BP 154/93; PULSE 90; TEMP 98.1; O2SAT 96
--- NOTE | 2025-01-29 08:27 | OP ---
SURGERY DATE/TIME: 01/26/2025 [id number] PREOPERATIVE DIAGNOSIS: Left olecranon bursitis. POSTOPERATIVE DIAGNOSIS: Left olecranon bursitis. PROCEDURE: Left olecranon bursectomy. SURGEON: Jatinder Cadena MD. ELECTRIC RANGE ASSEMBLER: None. ANESTHESIA: General. ESTIMATED BLOOD LOSS: 10 mL. COMPLICATIONS: None. INDICATIONS: The patient is a 59-year-old male who began to have posterior left elbow swelling approximately 6 weeks ago. He had associated pain as well. The bursa was aspirated at that time and stayed decompressed for one month, and then the fluid returned. He then had another aspiration, and the swelling returned the next day. We discussed options, and he wanted to proceed with left olecranon bursectomy. I explained the risks associated with the procedure, including but not limited to infection, pain, bleeding, damage to surrounding structures, stiffness, recurrence, and need for further procedures. After explaining all risks, benefits, and alternative treatment options, he desired to proceed with surgery. DESCRIPTION OF PROCEDURE AND FINDINGS: The patient was taken to the operating room and placed in a supine position. IV antibiotics were administered, and general anesthesia was administered as well. A tourniquet was applied to the left upper arm. The left upper extremity was then prepped and draped in a standard sterile fashion. An Esmarch was then used to exsanguinate the limb, and the tourniquet was inflated to 250 mmHg. At this time, a slightly curved incision was made posteriorly over the left olecranon bursa. Dissection was carried down, and the bursa was identified and initially entered. There was a large amount of blood-tinged fluid expressed. The bursal sac was then carefully dissected and removed in its entirety. The Bovie was used to cauterize the tissue bed. The wound was thoroughly irrigated with normal saline. The potential space was then closed using 2-0 Vicryl sutures. The subcutaneous tissue was then closed with 2-0 Vicryl sutures, and the skin was closed with carin. The russel-incisional area was then injected with 0.5% Marcaine with epinephrine. A sterile dressing was then applied as well as an arm sling. The patient was then awakened from anesthesia and taken to the recovery room in stable condition.
== END 2025-01-26 10:30 | disposition home or self-care (01) ==
LOC: SDC 05:46
PROVIDERS: ATTEND Orthopaedic Surgery
DX: M70.22 Olecranon bursitis, left elbow (principal); E11.9 Type 2 diabetes mellitus without complications; I10 Essential (primary) hypertension